=== PATIENT | male | born 2000 | race African-American/Black ===

== ENCOUNTER 2020-02-21 02:38 | Emergency (ER) | payer OTHER, SELFPAY ==
[2020-02-21 02:41] VITALS: BP 132/69; PULSE 78; RESP 16; TEMP 36.2; O2SAT 98; BMI 29.8
[2020-02-21 03:22] VITALS: BP 128/81; PULSE 86; RESP 18; O2SAT 97
--- NOTE | 2020-02-21 03:25 | ED.MALEGU ---
HPI - Male Genitourinary General Chief complaint: Urogenital-Male Stated complaint: DYSURIA Time Seen by Provider: 02/21/20 03:25 History of Present Illness HPI Narrative: This is a 19-year-old male who presents with pain and burning when he urinates and states that he has been engaging in unprotected sexual intercourse. Otherwise, he denies any fevers, chills, nausea, vomiting, diarrhea, scrotal pain. Related Data Allergies Allergy/AdvReac Type Severity Reaction Status Date / Time blueberry [BLUEBERRY] Allergy Unknown RASH Verified 02/21/20 02:41 blueberries Allergy Unknown Vomiting Uncoded 02/21/20 02:41 Review of Systems Review of Systems: Pertinent positives and negatives as stated in HPI 10 point review of systems is otherwise negative. [facility] Past Medical History Source: nursing notes reviewed Medical History No known health problems Social History Social History Alcohol intake: never Smoking Status: Current every day smoker Smoked in Last 30 Days: Yes Use of substances other than those prescribed or required for medical reasons: No Advance Directives: No Physical Exam Vital Signs and I&O and Narrative: Vital Signs and I&O: Vital Signs Temp 97.1 F 02/21/20 02:41 Pulse 86 02/21/20 03:22 Resp 18 02/21/20 03:22 BP 128/81 02/21/20 03:22 Pulse Ox 97 02/21/20 03:22 Intake & Output 02/20/20 02/20/20 02/21/20 06:59 18:59 06:59 Weight 99.79 kg Body Mass Index 29.8 VITAL SIGNS: Reviewed. GENERAL: Well developed, well nourished, in no acute distress. HEAD: Normocephalic/atraumatic, Posterior oropharynx was without edema, erythema or exudate. EYES: PERRLA, Pupils <>, EOMI intact without pain, no nystagmus/pallor/icterus noted EARS: Ext canals without abnormality, TMs non-bulging and non-erythematous NOSE: Nares patent bilateral OROPHARYNX: no oral lesions noted, posterior pharynx clear and non-erythematous without noted tonsillar enlargement/erythema/exudates NECK: Supple, no adenopathy LUNGS: Normal breath sounds. No adventitious sounds or accessory muscle use. SpO2<97> CARDIOVASCULAR: Regular rate and rhythm without noted murmurs, no JVD or lower extremity edema. ABDOMEN: Soft, non-tender, non-distended with bowel sounds. No rigidity. No guarding. No palpable masses or hernias noted MUSCULOSKELETAL: No tenderness, deformities, or effusions noted on gross inspection. EXTREMITIES: No cyanosis, clubbing or edema. SKIN: Inspection of the skin reveals no rashes, ulcerations, jaundice, pallor, or petechiae. NEUROLOGIC: Alert and oriented x 3. Strength and sensation to light touch were grossly intact x 4. Course Course Hospital Course: This is a 19-year-old male with history and clinical presentation consistent with most likely STI. Patient received empirical treatment and specimens were sent to the lab for verification. This was discussed with the patient at bedside and he knows that he will need to inform his sexual partners if he has called and found to be positive. Discharge Plan Discharge Clinical Impression: Urethritis Patient Disposition: Home, Self-Care Instructions: Nonspecific Urethritis in Men (ED) Additional Instructions: 1. You have been treated for your symptoms here in the emergency department. 2. You should abstain from sexual intercourse until the results of your tests have been called to you. 3. If you recalled and informed that you have a sexually transmitted infection you are required to inform your sexual partners. The patient and/or family acknowledge understanding of results (as applicable), diagnosis, treatment plan, need for follow up, and symptoms that should prompt a return to the emergency room. Referrals: Jyoti Uribe MD [Physician] - 2 days ( Follow-up urine tests)
[2020-02-21] MEDS: Azithromycin 500 MG TABLET 1000 MG PO (04:16)
[2020-02-21] MEDS: cefTRIAXone sodium 250 MG VIAL IM (04:16)
== END 2020-02-21 05:00 | disposition home or self-care (01) ==
PROVIDERS: Emergency Provider Student in an Organized Health Care Education/Training Program
DX: N34.2 Other urethritis (principal); R30.0 Dysuria; F17.200 Nicotine dependence, unspecified, uncomplicated; Z71.6 Tobacco abuse counseling
CPT/HCPCS: 96372; 99284; J0696

== ENCOUNTER 2020-04-17 06:23 | Outpatient (REF) | payer OTHER, SELFPAY | END 2020-04-17 06:24 | disposition home or self-care (01) | LOC: HO.LAB 06:23 | PROVIDERS: Visit Provider Internal Medicine | DX: Z20.828 Contact with and (suspected) exposure to other viral communicable diseases (principal) | CPT/HCPCS: C9803; U0003 ==

== ENCOUNTER 2020-07-22 00:19 | Emergency (ER) | payer OTHER, SELFPAY ==
--- NOTE | ~2020-07-22 | CT_ITS ---
EXAMINATION: CT HEAD WITHOUT CONTRAST CLINICAL INFORMATION: Syncope COMPARISON: None TECHNIQUE: Contiguous axial imaging was performed from the skull base to vertex without intravenous administration of contrast. This CT examination was performed using dose optimization techniques as appropriate, variously including the following: *Automated exposure control *Adjustment of mA and/or kV according to patient size (this includes techniques or standardized protocols for targeted exams where dose is matched to indication/reason for exam; i.e. extremities or head) *Use of iterative reconstruction technique DLP: 782 mGy-cm FINDINGS: There is no evidence of acute intracranial hemorrhage or territorial infarction. No abnormal mass effect or midline shift is seen. Meredith to white matter differentiation is well preserved. No extra-axial fluid collections are identified. The ventricles are normal in size. There is no abnormal attenuation within the brain parenchyma. The osseous structures and soft tissues are normal. The mastoid air cells and visualized portions of the paranasal sinuses are well aerated. CT/CT head/brain wo con IMPRESSION: No acute intracranial pathology.
--- NOTE | ~2020-07-22 | XR_ITS ---
EXAMINATION: XR CHEST CLINICAL INFORMATION: Syncope COMPARISON: 08/20/2017 TECHNIQUE: Frontal view of the chest was obtained. FINDINGS: Lung volumes are symmetric. No focal consolidation is seen. No evidence of pneumothorax, pleural effusion, or pulmonary edema. The cardiomediastinal contour is unremarkable. No acute osseous findings are seen. XR/XR chest 1V IMPRESSION: No acute cardiopulmonary findings.
[2020-07-22 00:27] VITALS: BP 110/78; PULSE 73; RESP 15; TEMP 36.7; O2SAT 97; BMI 28.5
--- NOTE | 2020-07-22 00:27 | ED_ITS ---
HPI - Syncope General Chief Complaint: Syncope <TANGELA Brown Last Filed: 07/22/20 01:47> Stated Complaint: syncope <TANGELA Brown Last Filed: 07/22/20 01:47> Time Seen by Provider: 07/22/20 01:46 <TANGELA Brown Last Filed: 07/22/20 01:47> Source: patient and EMS <TANGELA Brown Last Filed: 07/22/20 01:47> Mode of arrival: EMS <TANGELA Brown Last Filed: 07/22/20 01:47> Limitations: no limitations <TANGELA Brown Last Filed: 07/22/20 01:47> History of Present Illness HPI narrative: A 20-year-old male with history of suspected hypertrophic cardiomyopathy, had a workup by Cardiology yesterday and cannot recall the diagnosis that was given, presents via EMS for a syncopal episode. Patient does report smoking some marijuana several hours prior to the event. States that he got up to get some water, when he turned the lights on in the room that he was in he fell to the ground. He does not recall hitting his head. He felt weak, dizzy, and had left-sided arm pain prior to the event. He denies fevers, chills, chest pain and pressure, abdominal pain, abdominal distention, diaphoresis, dysuria, hematuria, and edema. <TANGELA Brown Last Filed: 07/22/20 01:47> MD complaint: loss of consciousness <TANGELA Brown Last Filed: 07/22/20 01:47> Onset (ago): hour(s) (Within the hour of arrival) <TANGELA Brown Last Filed: 07/22/20 01:47> Prodromal symptoms: lightheaded and other (Left arm pain) <TANGELA Brown Last Filed: 07/22/20 01:47> Context: getting out of bed <TANGELA Brown Last Filed: 07/22/20 01:47> Injuries sustained associated with event: none <TANGELA Brown Last Filed: 07/22/20 01:47> Current symptoms: weakness <TANGELA Brown Last Filed: 07/22/20 01:47> History: previous syncopal episode <TANGELA Brown Last Filed: 07/22/20 01:47> Related Data Allergies/Adverse Reactions: Allergies Allergy/AdvReac Type Severity Reaction Status Date / Time blueberry [BLUEBERRY] Allergy Unknown RASH Verified 02/21/20 02:41 blueberries Allergy Unknown Vomiting Uncoded 02/21/20 02:41 <TANGELA Brown Last Filed: 07/22/20 01:47> Review of Systems Review of Systems: Constitutional: Positive LOC syncopal episode, No Fever, No Chills ENT/Mouth: No Ear Pain, No Hoarseness, No sore throat Eyes: No Eye Pain, No Swelling, No Redness, No Foreign Body Cardiovascular: Positive left arm pain, No Chest Pain, No SOB Respiratory: No Cough, No Dyspnea Gastrointestinal: No Nausea, No Vomiting, No Diarrhea, No abdominal Pain Genitourinary: No Dysuria, No Hematuria Musculoskeletal: No joint pain, No Myalgias, No Joint Swelling Skin: No Skin lacerations, No rash Neuro: No Weakness, No Numbness, No Paresthesias, No Loss of Consciousness, No Dizziness, No Headache Psych: No Anxiety/Panic, No Depression Heme/Lymph: no easy bruising, no Lymphadenopathy Endocrine: No Polyuria, No Polydipsia <TANGELA Brown Last Filed: 07/22/20 01:47> Yes all other systems are reviewed and are negative <Rose Bo NP - Last Filed: 07/22/20 01:47> [facility] Past Medical History Attestation statement: The following information was validated with the patient. <TANGELA Brown Last Filed: 07/22/20 01:47> Source: old records reviewed <TANGELA Brown Last Filed: 07/22/20 01:47> Medical History: Medical History No known health problems <TANGELA Brown Last Filed: 07/22/20 01:47> Social History Social History: Social History Alcohol intake: current Alcohol intake frequency: holidays/special occasions only Smoking Status: Current every day smoker Smoked in Last 30 Days: No Use of substances other than those prescribed or required for medical reasons: Yes Substance Use Type: Marijuana Advance Directives: No Advance Directives Information Provided: No <Rose Bo NP - Last Filed: 07/22/20 01:47> Physical Exam Vital Signs: Vital Signs: Last Vital Signs Temp 98.1 F 07/22/20 02:00 Pulse 73 07/22/20 02:00 Resp 18 07/22/20 02:00 BP 126/51 L 07/22/20 02:00 Pulse Ox 97 07/22/20 02:00 Body Mass Index 28.5 <Rose Bo NP - Last Filed: 07/22/20 01:47> Vital Signs: Last Vital Signs Temp 98.1 F 07/22/20 02:00 Pulse 73 07/22/20 02:00 Resp 18 07/22/20 02:00 BP 126/51 L 07/22/20 02:00 Pulse Ox 97 07/22/20 02:00 Body Mass Index 28.5 <Esequiel Joseph MD - Last Filed: 07/22/20 03:07> Appearance: Alert. Oriented X3. Mild distress. Appears tired. Head: Normal external exam. Normocephalic. Atraumatic. No Butler signs noted. No raccoon eyes noted Eyes: PERRLA. EOMI. Conjunctiva and sclera normal. Eyelids normal. ENT: TM's Normal. Pharynx normal. Uvula midline. Moist mucous membranes. No trismus noted. No drooling noted. No muffled voice noted. Neck: Normal inspection. Neck supple. No adenopathy. No meningeal signs. CVS: Normal heart rate and rhythm. Heart sound normal. No murmurs noted. Pulses equal to all extremities. Respiratory: No respiratory distress. Painless inspiration. Breath sounds normal. No wheezes/rales/rhonchi noted. Chest nontender. No accessory muscle usage noted or decreased air movement noted. Abdomen: Soft and nontender. Bowel sounds normal in all 4 quadrants. No distention noted. No organomegaly noted. No visible injury noted. Back: No CVA tenderness. Full range of motion noted. Skin: Skin warm and dry. Normal skin color. Normal skin turgor. No ra shes/lesions/lacerations noted. Extremities: No lower extremity edema. Extremities exhibit normal range of motion. Extremities nontender. Neuro: cranial nerves 2-12 intact, no focal neural deficits, strength 5/5 to all extremities, No motor deficit. No sensory deficit. <TANGELA Brown Last Filed: 07/22/20 01:47> Course Course Course Narrative: 20-year-old male presents with syncopal episode. States that he was worked up by pediatric acute care unit nurse few days ago for enlarged heart muscles. He is unsure of what his diagnosis is, states that his brother also has a congenital heart defect. Patient does report smoking marijuana several hours prior to the event. Patient does complain of left arm pain but has no other complaints at this time. Given patient's demographic history and questionable cardiac history we will rule out dissection, ACS. his EKG indicates LVH and questionable ST elevation probably due to early repolarization plan is for CT scan of the head, CT neck and head angio, rule out ACS, CBC, Chem 7 and troponins. 12:50 a.m. discussion with his mother Mel, states that patient has a leaking left valve and left-sided enlargement of his heart. Sees Dr. Bailey for ms access database developer on [facility]. Mother also states that patient has had multiple syncopal episodes starting at age 13. Patient's brother 13 years old has a murmur and an irregular rhythm. Patient's cousin at age 30 sudden cardiac without any significant health history. A review of records indicates that patient has had history of cardiomyopathy, mitral insufficiency and ST elevations consistent with early repolarization and LVH dating back to 2014. 1:46 a.m. sign out to Dr. Joseph <Rose Bo NP - Last Filed: 07/22/20 01:47> MDM - Syncope MDM Narrative Medical decision making narrative: ACS, dissection <Rose Bo NP - Last Filed: 07/22/20 01:47> Differential Diagnosis Differential diagnosis: Likely syncope due to orthostatic hypotension, vasovagal syncope, complete atrioventricular block and dehydration <Rose Bo NP - Last Filed: 07/22/20 01:47> Medical Records Attestation: I reviewed the patient's medical records. <Rose Bo NP - Last Filed: 07/22/20 01:47> Lab Data Attestation: I reviewed the patient's lab results. <Rose Bo NP - Last Filed: 07/22/20 01:47> Result diagrams: : 07/22/20 01:24 07/22/20 01:24 <Rose Bo NP - Last Filed: 07/22/20 01:47> Labs: Lab Results 07/22/20 07/22/20 07/22/20 Range/Units 01:00 01:24 01:24 WBC 6.9 (4.8-10.8) X10*3/uL RBC 4.94 (4.60-5.80) X10*6/uL Hgb 14.4 (14.0-18.0) g/dl Hct 43.7 (42-52) % MCV 88.5 (80-98) fL MCH 29.1 (27.0-33.0) pg MCHC 33.0 (31.0-36.0) g/dl RDW 13.9 (11.0-16.0) % Plt Count 171 (160-400) X10*3/uL MPV 10.4 (9.4-12.4) fL Immature Gran % (Auto) 0.1 (0.0-0.4) % Neut % (Auto) 63.9 (45-73) % Lymph % (Auto) 22.8 (20-40) % [place] % (Auto) 11.9 H (2-11) % Eos % (Auto) 1.0 (0-4) % Baso % (Auto) 0.3 (0-2) % Lymph # (Auto) 1.6 (1.2-4.9) X10*3/uL [place] # (Auto) 0.8 (0.1-1.2) X10*3/uL Eos # (Auto) 0.1 (0.0-0.4) X10*3/uL Baso # (Auto) 0.0 (0.0-0.2) X10*3/uL Abs Immat Gran (auto) 0.01 (0.00-0.03) X10*3/uL Absolute Neuts (auto) 4.4 (2.0-8.3) X10*3/uL Absolute Nucleated RBC 0.000 (0.0-0.012) X10*3/uL Nucleated RBC % (auto) 0.0 (0.0-0.2) /100WBC PT 13.7 H (10.8-13.0) SEC INR 1.2 H (0.9-1.1) APTT 30.4 (24.1-38.0) SEC Sodium (135-145) mmol/L Potassium (3.3-5.1) mmol/L Chloride (96-108) mmol/L Carbon Dioxide (22-29) mmol/L Anion Gap (12-20) BUN (9-16) mg/dL Creatinine (0.5-1.4) mg/dL Estim Creat Clear Calc Estimated GFR POC Glucose 157 H (60-115) mg/dL Random Glucose (60-115) mg/dL Calcium (8.4-10.2) mg/dL Magnesium (1.6-2.6) mg/dL Total Bilirubin (0.0-1.0) mg/dL Direct Bilirubin (0.0-0.5) mg/dL AST (5-37) U/L ALT (0-40) U/L Alkaline Phosphatase (39-117) U/L Troponin I High Sens (<3.5-35.0) ng/L Total Protein (6.5-8.0) g/dL Albumin (3.5-5.0) g/dL Lipase (8-78) U/L Ethyl Alcohol mg/dL 07/22/20 07/22/20 07/22/20 Range/Units 01:24 01:24 01:24 WBC (4.8-10.8) X10*3/uL RBC (4.60-5.80) X10*6/uL Hgb (14.0-18.0) g/dl Hct (42-52) % MCV (80-98) fL MCH (27.0-33.0) pg MCHC (31.0-36.0) g/dl RDW (11.0-16.0) % Plt Count (160-400) X10*3/uL MPV (9.4-12.4) fL Immature Gran % (Auto) (0.0-0.4) % Neut % (Auto) (45-73) % Lymph % (Auto) (20-40) % [place] % (Auto) (2-11) % Eos % (Auto) (0-4) % Baso % (Auto) (0-2) % Lymph # (Auto) (1.2-4.9) X10*3/uL [place] # (Auto) (0.1-1.2) X10*3/uL Eos # (Auto) (0.0-0.4) X10*3/uL Baso # (Auto) (0.0-0.2) X10*3/uL Abs Immat Gran (auto) (0.00-0.03) X10*3/uL Absolute Neuts (auto) (2.0-8.3) X10*3/uL Absolute Nucleated RBC (0.0-0.012) X10*3/uL Nucleated RBC % (auto) (0.0-0.2) /100WBC PT (10.8-13.0) SEC INR (0.9-1.1) APTT (24.1-38.0) SEC Sodium 138 (135-145) mmol/L Potassium 5.1 (3.3-5.1) mmol/L Chloride 104 (96-108) mmol/L Carbon Dioxide 21 L (22-29) mmol/L Anion Gap 18 (12-20) BUN 10 (9-16) mg/dL Creatinine 0.92 (0.5-1.4) mg/dL Estim Creat Clear Calc 144.7 Estimated GFR > 60 POC Glucose (60-115) mg/dL Random Glucose 138 H (60-115) mg/dL Calcium 8.6 (8.4-10.2) mg/dL Magnesium 2.0 (1.6-2.6) mg/dL Total Bilirubin 0.2 (0.0-1.0) mg/dL Direct Bilirubin < 0.2 (0.0-0.5) mg/dL AST 37 (5-37) U/L ALT 35 (0-40) U/L Alkaline Phosphatase 66 (39-117) U/L Troponin I High Sens < 3.5 (<3.5-35.0) ng/L Total Protein 7.5 (6.5-8.0) g/dL Albumin 4.1 (3.5-5.0) g/dL Lipase 11 (8-78) U/L Ethyl Alcohol < 10 mg/dL <Rose Bo NP - Last Filed: 07/22/20 01:47> Lab Results 07/22/20 07/22/20 07/22/20 Range/Units 01:00 01:24 01:24 WBC 6.9 (4.8-10.8) X10*3/uL RBC 4.94 (4.60-5.80) X10*6/uL Hgb 14.4 (14.0-18.0) g/dl Hct 43.7 (42-52) % MCV 88.5 (80-98) fL MCH 29.1 (27.0-33.0) pg MCHC 33.0 (31.0-36.0) g/dl RDW 13.9 (11.0-16.0) % Plt Count 171 (160-400) X10*3/uL MPV 10.4 (9.4-12.4) fL Immature Gran % (Auto) 0.1 (0.0-0.4) % Neut % (Auto) 63.9 (45-73) % Lymph % (Auto) 22.8 (20-40) % [place] % (Auto) 11.9 H (2-11) % Eos % (Auto) 1.0 (0-4) % Baso % (Auto) 0.3 (0-2) % Lymph # (Auto) 1.6 (1.2-4.9) X10*3/uL [place] # (Auto) 0.8 (0.1-1.2) X10*3/uL Eos # (Auto) 0.1 (0.0-0.4) X10*3/uL Baso # (Auto) 0.0 (0.0-0.2) X10*3/uL Abs Immat Gran (auto) 0.01 (0.00-0.03) X10*3/uL Absolute Neuts (auto) 4.4 (2.0-8.3) X10*3/uL Absolute Nucleated RBC 0.000 (0.0-0.012) X10*3/uL Nucleated RBC % (auto) 0.0 (0.0-0.2) /100WBC PT 13.7 H (10.8-13.0) SEC INR 1.2 H (0.9-1.1) APTT 30.4 (24.1-38.0) SEC Sodium (135-145) mmol/L Potassium (3.3-5.1) mmol/L Chloride (96-108) mmol/L Carbon Dioxide (22-29) mmol/L Anion Gap (12-20) BUN (9-16) mg/dL Creatinine (0.5-1.4) mg/dL Estim Creat Clear Calc Estimated GFR POC Glucose 157 H (60-115) mg/dL Random Glucose (60-115) mg/dL Calcium (8.4-10.2) mg/dL Magnesium (1.6-2.6) mg/dL Total Bilirubin (0.0-1.0) mg/dL Direct Bilirubin (0.0-0.5) mg/dL AST (5-37) U/L ALT (0-40) U/L Alkaline Phosphatase (39-117) U/L Troponin I High Sens (<3.5-35.0) ng/L Total Protein (6.5-8.0) g/dL Albumin (3.5-5.0) g/dL Lipase (8-78) U/L Ethyl Alcohol mg/dL 07/22/20 07/22/20 07/22/20 Range/Units 01:24 01:24 01:24 WBC (4.8-10.8) X10*3/uL RBC (4.60-5.80) X10*6/uL Hgb (14.0-18.0) g/dl Hct (42-52) % MCV (80-98) fL MCH (27.0-33.0) pg MCHC (31.0-36.0) g/dl RDW (11.0-16.0) % Plt Count (160-400) X10*3/uL MPV (9.4-12.4) fL Immature Gran % (Auto) (0.0-0.4) % Neut % (Auto) (45-73) % Lymph % (Auto) (20-40) % [place] % (Auto) (2-11) % Eos % (Auto) (0-4) % Baso % (Auto) (0-2) % Lymph # (Auto) (1.2-4.9) X10*3/uL [place] # (Auto) (0.1-1.2) X10*3/uL Eos # (Auto) (0.0-0.4) X10*3/uL Baso # (Auto) (0.0-0.2) X10*3/uL Abs Immat Gran (auto) (0.00-0.03) X10*3/uL Absolute Neuts (auto) (2.0-8.3) X10*3/uL Absolute Nucleated RBC (0.0-0.012) X10*3/uL Nucleated RBC % (auto) (0.0-0.2) /100WBC PT (10.8-13.0) SEC INR (0.9-1.1) APTT (24.1-38.0) SEC Sodium 138 (135-145) mmol/L Potassium 5.1 (3.3-5.1) mmol/L Chloride 104 (96-108) mmol/L Carbon Dioxide 21 L (22-29) mmol/L Anion Gap 18 (12-20) BUN 10 (9-16) mg/dL Creatinine 0.92 (0.5-1.4) mg/dL Estim Creat Clear Calc 144.7 Estimated GFR > 60 POC Glucose (60-115) mg/dL Random Glucose 138 H (60-115) mg/dL Calcium 8.6 (8.4-10.2) mg/dL Magnesium 2.0 (1.6-2.6) mg/dL Total Bilirubin 0.2 (0.0-1.0) mg/dL Direct Bilirubin < 0.2 (0.0-0.5) mg/dL AST 37 (5-37) U/L ALT 35 (0-40) U/L Alkaline Phosphatase 66 (39-117) U/L Troponin I High Sens < 3.5 (<3.5-35.0) ng/L Total Protein 7.5 (6.5-8.0) g/dL Albumin 4.1 (3.5-5.0) g/dL Lipase 11 (8-78) U/L Ethyl Alcohol < 10 mg/dL <Esequiel Joseph MD - Last Filed: 07/22/20 03:07> ECG Data Attestation: I personally reviewed and interpreted this ECG as follows: <Rose Bo NP - Last Filed: 07/22/20 01:47> ECG interpretation date: 07/22/20 <Rose Bo NP - Last Filed: 07/22/20 01:47> ECG interpretation time: 00:41 <Rose Bo NP - Last Filed: 07/22/20 01:47> Prior ECG tracings: available for review <Rose Bo NP - Last Filed: 07/22/20 01:47> Interpretation: Vent. rate 64 BPM CO interval 146 ms QRS duration 98 ms QT/QTc 388/400 ms P-R-T axes 47 76 40 Normal sinus rhythm Minimal voltage criteria for LVH, may be normal variant ST elevation, consider early repolarization Borderline ECG When compared with ECG of 21-AUG-2017 04:01, No significant change was found <Rose Bo NP - Last Filed: 07/22/20 01:47>
--- NOTE | 2020-07-22 00:31 | ECG_ITS ---
Test Reason : SYNCOPEE Blood Pressure : / mmHG Vent. Rate : 064 BPM Atrial Rate : 064 BPM P-R Int : 146 ms QRS Dur : 098 ms QT Int : 388 ms P-R-T Axes : 047 076 040 degrees QTc Int : 400 ms Normal sinus rhythm Minimal voltage criteria for LVH, may be normal variant ST elevation, consider early repolarization Borderline ECG When compared with ECG of 21-AUG-2017 04:01, No significant change was found Referred By: Rose Bo Electronically Signed By:KEVON PATE
[2020-07-22 01:29] LABS: MANUAL DIFF FLAG NO
[2020-07-22 01:30] LABS: Basophils Percent Auto 0.3 % (0-2); Eosinophils Absolute Auto 0.1 X10*3/uL (0.0-0.4); Hematocrit 43.7 % (42-52); Hemoglobin 14.4 g/dl (14.0-18.0); Imm Gran Abs Auto 0.01 X10*3/uL (0.00-0.03); Imm Gran Pct Auto 0.1 % (0.0-0.4); Lymphocytes Absolute Auto 1.6 X10*3/uL (1.2-4.9); Lymphocytes Percent Auto 22.8 % (20-40); Mean Corpuscular Hemoglobin 29.1 pg (27.0-33.0); Mean Corpuscular Volume 88.5 fL (80-98); Mean Platelet Volume 10.4 fL (9.4-12.4); Monocytes Absolute Auto 0.8 X10*3/uL (0.1-1.2); Monocytes Percent Auto 11.9 % (2-11); Neutrophils Absolute Auto 4.4 X10*3/uL (2.0-8.3); Neutrophils Percent Auto 63.9 % (45-73); Platelet Count 171 X10*3/uL (160-400); Red Blood Count 4.94 X10*6/uL (4.60-5.80); Red Cell Distribution Width 13.9 % (11.0-16.0); White Blood Count 6.9 X10*3/uL (4.8-10.8)
[2020-07-22 01:34] LABS: Glucose, Whole Blood 157 mg/dL (60-115)
[2020-07-22 01:35] LABS: INTERNATIONAL NORM RATIO 1.2 (0.9-1.1); Prothrombin Time 13.7 SEC (10.8-13.0)
[2020-07-22 01:38] LABS: Partial Thromboplastin Time 30.4 SEC (24.1-38.0)
[2020-07-22 01:41] VITALS: BP 110/53; PULSE 82; RESP 19; O2SAT 98
[2020-07-22 01:59] LABS: Troponin-I High Sensitivity < 3.5 ng/L (<3.5-35.0)
[2020-07-22 02:00] VITALS: BP 126/51; PULSE 73; PULSE 80; RESP 16; RESP 18; TEMP 36.7; O2SAT 97; O2SAT 98
[2020-07-22 02:11] LABS: Ethanol < 10 mg/dL
[2020-07-22 02:18] LABS: Alanine Aminotransferase 35 U/L (0-40); Albumin Level 4.1 g/dL (3.5-5.0); Alkaline Phosphatase 66 U/L (39-117); Anion Gap 18 (12-20); Aspartate Amino Transferase 37 U/L (5-37); Bilirubin Direct < 0.2 mg/dL (0.0-0.5); Bilirubin Total 0.2 mg/dL (0.0-1.0); Blood Urea Nitrogen 10 mg/dL (9-16); Calcium 8.6 mg/dL (8.4-10.2); Carbon Dioxide 21 mmol/L (22-29); Chloride 104 mmol/L (96-108); Creatinine Clr Calc Pharmacy 144.7; Estimated Glomerular Filt Rate > 60; Glucose Random 138 mg/dL (60-115); Lipase 11 U/L (8-78); Potassium 5.1 mmol/L (3.3-5.1); Sodium 138 mmol/L (135-145); Total Protein 7.5 g/dL (6.5-8.0)
== END 2020-07-22 03:50 | disposition home or self-care (01) ==
PROVIDERS: Nurse Practitioner Family; Emergency Provider Emergency Medicine Emergency Medical Services
DX: R55 Syncope and collapse (principal); I42.9 Cardiomyopathy, unspecified; I34.0 Nonrheumatic mitral (valve) insufficiency; F12.90 Cannabis use, unspecified, uncomplicated; F17.200 Nicotine dependence, unspecified, uncomplicated
CPT/HCPCS: 36415; 70450; 71045; 80048; 80076; 80320; 82947; 83690; 83735; 84484; 85025; 85610; 85730; 93005; 99285

== ENCOUNTER 2022-01-13 13:38 | Emergency (ER) | payer OTHER, SELFPAY ==
--- NOTE | ~2022-01-13 | XR_ITS ---
EXAMINATION: XR CHEST CLINICAL INFORMATION: Chest pain COMPARISON: Chest x-ray 07/22/2020 TECHNIQUE: 2 views of the chest were obtained. FINDINGS: The lungs are clear. No airspace consolidation, pleural effusion, or pneumothorax. The cardiomediastinal silhouette is within normal limits. No acute osseous injury. XR/XR chest 2V IMPRESSION: No acute pulmonary process.
--- NOTE | 2022-01-13 13:42 | ECG_ITS ---
Test Reason : CP Blood Pressure : / mmHG Vent. Rate : 074 BPM Atrial Rate : 074 BPM P-R Int : 138 ms QRS Dur : 092 ms QT Int : 382 ms P-R-T Axes : 058 079 044 degrees QTc Int : 424 ms Normal sinus rhythm ST elevation, consider early repolarization Borderline ECG When compared with ECG of 22-JUL-2020 00:41, No significant change was found Referred By: Generic ED Physician Electronically Signed By:JOSE CARLOS MCLAUGHLIN
[2022-01-13 13:47] VITALS: BP 132/66; PULSE 74; RESP 16; TEMP 36.6; O2SAT 98; BMI 28.7
--- NOTE | 2022-01-13 14:13 | ED_ITS ---
HPI - Chest Pain General Chief Complaint: Chest Pain Stated Complaint: Chest pain Time Seen by Provider: 01/13/22 13:51 Source: patient Mode of arrival: ambulatory Limitations: no limitations History of Present Illness HPI narrative: This is a 21-year-old male with an unknown cardiac condition who presents with chest pain which he describes as left-sided, sharp and stabbing since 01/15 this morning. Patient tells me he works for [employer] which is a quite physical job. He was operating a [employer] when he started to experience pain in the chest. This was associated with some shortness of breath. The pain has been constant. Patient denies any associated nausea, diaphoresis, cough, fever, leg swelling or leg pain, dizziness or palpitations. Patient tells me he was diagnosed with this condition at the age of 15. He is followed by Dr. Dunn at the [facility] in [place]. He sees him yearly for echocardiograms. He tells me he has no physical restrictions. His brother has a similar heart condition Of note, the patient was diagnosed with COVID on January 02. Patient reports symptoms for about 7 days of nausea, vomiting, diarrhea, fatigue, fever, body aches and chills. His symptoms have since resolved. He is unvaccinated for COVID. No recent travel or sick contact. Patient denies any substance use Related Data Allergies Allergy/AdvReac Type Severity Reaction Status Date / Time blueberry [BLUEBERRY] Allergy Unknown RASH Verified 02/21/20 02:41 blueberries Allergy Unknown Vomiting Uncoded 02/21/20 02:41 Review of Systems Review of Systems: Yes all other systems are reviewed and are negative Constitutional: Constitutional: Reports no additional constitutional complaints, Denies body ache(s), Denies chills, Denies fever(s), Denies headache(s) and Denies weakness Eyes: Eyes: Reports no additional eye complaints and Denies change in vision ENT: Reports system reviewed and no additional complaints, except as documented, Denies dizziness, Denies headache(s), Denies nasal congestion, Denies nasal discharge and Denies neck pain Cardiovascular: Cardiovascular: Reports no additional cardiovascular complaints, Reports chest pain, Denies leg edema and Reports dyspnea Respiratory: Respiratory: Reports no additional respiratory complaints, Denies cough and Reports dyspnea Gastrointestinal: Gastrointestinal: Reports no additional gastrointestinal complaints, Denies abdominal pain, Denies diarrhea, Denies nausea and Denies vomiting Genitourinary: Genitourinary: Denies urinary incontinence Musculoskeletal: Musculoskeletal: Reports no additional musculoskeletal complaints, Denies back pain, Denies arthralgias, Denies joint swelling, Denies neck pain, Denies numbness and Denies tingling Integumentary/Breasts: Skin/Breast: Reports system reviewed and no additional complaints, except as docu and Denies rash Neurologic: Reports system reviewed and no additional complaints, except as documented, Denies Abnormal speech present, Denies dizziness, Denies headache(s), Denies numbness, Denies tingling and Denies weakness PMFSH Past Medical History Attestation statement: The following information was validated with the patient. Source: old records reviewed and nursing notes reviewed Medical History No known health problems Social History Social History Alcohol intake: current Alcohol intake frequency: holidays/special occasions only Substance Use Type: Marijuana Advance Directives: No Advance Directives Information Provided: No Physical Exam Vital Signs: Vital Signs: Last Vital Signs Temp 98.1 F 01/13/22 15:20 Pulse 71 01/13/22 15:20 Resp 16 01/13/22 15:20 BP 127/79 01/13/22 15:20 Pulse Ox 98 01/13/22 15:20 O2 Del Method 01/13/22 15:20 BMI result Body Mass Index 28.7 Const: General: cooperative, healthy appearing, comfortable and no acute distress Orientation/consciousness: patient oriented x3 Limitations: no limitations HEENT: Head: Yes normal to inspection Ears: hearing grossly normal bilaterally General nose exam: Normal external nose present Face and sinus: Yes normal facial exam Mouth: Normal oral and palatal mucosa present Throat: Yes posterior oropharynx normal Eyes: General: appearance normal, both eyes and all related structures Pupils: Equal, round and reactive pupils present Neck: Neck: Yes normal visual inspection Chest: Chest palpation & inspection: normal inspection of the chest Resp: Effort & Inspection: normal respiratory effort Auscultation: clear to auscultation bilaterally Cardio: Rate: regular rate Rhythm: regular rhythm Peripheral pulses: Peripheral pulses 2+ throughout GI: Inspection: Yes normal to inspection Palpation (GI): Soft to palpation and nontender Auscultation: normal bowel sounds Back/Spine/Pelvis: Thoracic/Lumbar Spine: thoracic and lumbar spine normal to inspection Skin: General skin exam: no rashes or lesions noted Neuro: General: patient oriented x3, no focal motor deficits and normal sensation to monofilament Cranial nerves: Yes Equal, round and reactive pupils present Cognition (Neuro): normal cognition Speech: No Abnormal speech present Gait exam (Neuro): Normal gait present Motor exam (neuro): 5/5 motor strength present throughout Extrem: General: Yes normal to inspection, Yes no pedal edema and Yes no calf tenderness Course Course Course Narrative: Troponin times to unchanged. EKG shows no new changes. Less likely ACS. Considered PE. Perc score 0. Recommend patient follow-up with his steel rule inspector. Reviewed worrisome signs and symptoms of when to return to the emergency department. Comfortable discharge home. MDM - Chest Pain MDM Narrative Medical decision making narrative: 21-year-old male with a known cardiac condition presents with chest pain with shortness of breath since 0830 this morning. Vitals are stable. Will obtain EKG, labs and chest x-ray Differential Diagnosis Differential diagnosis: Myocarditis, acs, pe Medical Records Data Attestation: I reviewed the patient's medical records. Lab Data Attestation: I reviewed the patient's lab results. Result diagrams: 01/13/22 14:17 01/13/22 14:17 Labs: Lab Results 01/13/22 01/13/22 01/13/22 Range/Units 14:17 14:17 14:17 WBC 6.0 (4.8-10.8) X10*3/uL RBC 4.96 (4.60-5.80) X10*6/uL Hgb 14.4 (14.0-18.0) g/dl Hct 41.4 L (42.0-52.0) % MCV 83.5 (80.0-98.0) fL MCH 29.0 (27.0-33.0) pg MCHC 34.8 (31.0-36.0) g/dl RDW 13.3 (11.0-16.0) % Plt Count 206 (160-400) X10*3/uL MPV 10.1 (9.4-12.4) fL Immature Gran % (Auto) 0.2 (0.0-0.4) % Neut % (Auto) 49.9 (45-73) % Lymph % (Auto) 40.7 H (20-40) % Douglas % (Auto) 8.6 (2-11) % Eos % (Auto) 0.3 (0-4) % Baso % (Auto) 0.3 (0-2) % Lymph # (Auto) 2.5 (1.2-4.9) X10*3/uL Douglas # (Auto) 0.5 (0.1-1.2) X10*3/uL Eos # (Auto) 0.0 (0.0-0.4) X10*3/uL Baso # (Auto) 0.0 (0.0-0.2) X10*3/uL Abs Immat Gran (auto) 0.01 (0.00-0.03) X10*3/uL Absolute Neuts (auto) 3.0 (2.0-8.3) x10*3/uL Absolute Nucleated RBC 0.000 (0.0-0.012) X10*3/uL Nucleated RBC % (auto) 0.0 (0.0-0.2) /100WBC PT 15.2 H (10.0-13.1) SEC INR 1.3 H (0.9-1.1) Sodium 143 (135-145) mmol/L Potassium 3.8 D (3.3-5.1) mmol/L Chloride 108 (96-108) mmol/L Carbon Dioxide 23 (22-29) mmol/L Anion Gap 16 (12-20) BUN 12 (9-16) mg/dL Creatinine 0.85 (0.5-1.4) mg/dL Estim Creat Clear Calc 155.7 Estimated GFR > 60 Random Glucose 81 D (60-115) mg/dL Calcium 9.2 D (8.4-10.2) mg/dL Total Bilirubin 0.6 (0.0-1.0) mg/dL Direct Bilirubin 0.3 (0.0-0.5) mg/dL AST 31 (5-37) U/L ALT 40 (0-40) U/L Alkaline Phosphatase 68 (39-117) U/L Troponin I High Sens (<3.5-35.0) ng/L Total Protein 7.8 (6.5-8.0) g/dL Albumin 4.6 (3.5-5.0) g/dL 01/13/22 01/13/22 Range/Units 14:17 16:48 WBC (4.8-10.8) X10*3/uL RBC (4.60-5.80) X10*6/uL Hgb (14.0-18.0) g/dl Hct (42.0-52.0) % MCV (80.0-98.0) fL MCH (27.0-33.0) pg MCHC (31.0-36.0) g/dl RDW (11.0-16.0) % Plt Count (160-400) X10*3/uL MPV (9.4-12.4) fL Immature Gran % (Auto) (0.0-0.4) % Neut % (Auto) (45-73) % Lymph % (Auto) (20-40) % Douglas % (Auto) (2-11) % Eos % (Auto) (0-4) % Baso % (Auto) (0-2) % Lymph # (Auto) (1.2-4.9) X10*3/uL Douglas # (Auto) (0.1-1.2) X10*3/uL Eos # (Auto) (0.0-0.4) X10*3/uL Baso # (Auto) (0.0-0.2) X10*3/uL Abs Immat Gran (auto) (0.00-0.03) X10*3/uL Absolute Neuts (auto) (2.0-8.3) x10*3/uL Absolute Nucleated RBC (0.0-0.012) X10*3/uL Nucleated RBC % (auto) (0.0-0.2) /100WBC PT (10.0-13.1) SEC INR (0.9-1.1) Sodium (135-145) mmol/L Potassium (3.3-5.1) mmol/L Chloride (96-108) mmol/L Carbon Dioxide (22-29) mmol/L Anion Gap (12-20) BUN (9-16) mg/dL Creatinine (0.5-1.4) mg/dL Estim Creat Clear Calc Estimated GFR Random Glucose (60-115) mg/dL Calcium (8.4-10.2) mg/dL Total Bilirubin (0.0-1.0) mg/dL Direct Bilirubin (0.0-0.5) mg/dL AST (5-37) U/L ALT (0-40) U/L Alkaline Phosphatase (39-117) U/L Troponin I High Sens 3.8 4.0 (<3.5-35.0) ng/L Total Protein (6.5-8.0) g/dL Albumin (3.5-5.0) g/dL Imaging Data Chest x-ray: Attestation: I personally reviewed and interpreted this imaging study as follows: Radiologist's impression: ORMATION: Chest pain COMPARISON: Chest x-ray 07/22/2020 TECHNIQUE: 2 views of the chest were obtained. FINDINGS: The lungs are clear. No airspace consolidation, pleural effusion, or pneumothorax. The cardiomediastinal silhouette is within normal limits. No acute osseous injury. XR/XR chest 2V IMPRESSION: No acute pulmonary process. ECG Data ECG #1: Attestation: I personally reviewed and interpreted this ECG as follows: ECG interpretation date: 01/13/22 ECG interpretation time: 13:44 Interpretation: Sinus rhythm with a rate of 74, early repolarization noted, normal QRS and QT Unchanged when compared to previous EKG of August from 2021 Discharge Plan Discharge Clinical Impression: Chest pain Patient Disposition: Still a Patient Instructions: Chest Pain (DC) Additional Instructions: Your blood work, EKG and chest x-ray are all very reassuring today. We recommend that you follow-up with your steel rule inspector outpatient. Referrals: Doug Dunn MD [Physician] - 2 weeks Stand Alone Forms: Work/School Release
[2022-01-13 14:22] LABS: MANUAL DIFF FLAG NO
[2022-01-13 14:27] LABS: Basophils Percent Auto 0.3 % (0-2); Eosinophils Percent Auto 0.3 % (0-4); Hematocrit 41.4 % (42.0-52.0); Hemoglobin 14.4 g/dl (14.0-18.0); Imm Gran Abs Auto 0.01 X10*3/uL (0.00-0.03); Imm Gran Pct Auto 0.2 % (0.0-0.4); Lymphocytes Absolute Auto 2.5 X10*3/uL (1.2-4.9); Lymphocytes Percent Auto 40.7 % (20-40); Mean Corpuscular HGB Conc 34.8 g/dl (31.0-36.0); Mean Corpuscular Volume 83.5 fL (80.0-98.0); Mean Platelet Volume 10.1 fL (9.4-12.4); Monocytes Absolute Auto 0.5 X10*3/uL (0.1-1.2); Monocytes Percent Auto 8.6 % (2-11); Neutrophils Percent Auto 49.9 % (45-73); Platelet Count 206 X10*3/uL (160-400); Red Blood Count 4.96 X10*6/uL (4.60-5.80); Red Cell Distribution Width 13.3 % (11.0-16.0)
[2022-01-13 14:28] LABS: INTERNATIONAL NORM RATIO 1.3 (0.9-1.1); Prothrombin Time 15.2 SEC (10.0-13.1)
[2022-01-13 14:42] LABS: Troponin-I High Sensitivity 3.8 ng/L (<3.5-35.0)
[2022-01-13 14:43] LABS: Alanine Aminotransferase 40 U/L (0-40); Albumin Level 4.6 g/dL (3.5-5.0); Alkaline Phosphatase 68 U/L (39-117); Anion Gap 16 (12-20); Aspartate Amino Transferase 31 U/L (5-37); Bilirubin Direct 0.3 mg/dL (0.0-0.5); Bilirubin Total 0.6 mg/dL (0.0-1.0); Blood Urea Nitrogen 12 mg/dL (9-16); Calcium 9.2 mg/dL (8.4-10.2); Carbon Dioxide 23 mmol/L (22-29); Chloride 108 mmol/L (96-108); Creatinine Clr Calc Pharmacy 155.7; Estimated Glomerular Filt Rate > 60; Glucose Random 81 mg/dL (60-115); Potassium 3.8 mmol/L (3.3-5.1); Sodium 143 mmol/L (135-145); Total Protein 7.8 g/dL (6.5-8.0)
[2022-01-13 15:20] VITALS: BP 127/79; PULSE 71; RESP 16; TEMP 36.7; O2SAT 98
== END 2022-01-13 17:57 | disposition still patient (30) ==
PROVIDERS: Nurse Practitioner Family; Emergency Provider Emergency Medicine; PCP Pediatrics
DX: R07.89 Other chest pain (principal); Z79.899 Other long term (current) drug therapy
CPT/HCPCS: 36415; 71046; 80048; 80076; 84484; 85025; 85610; 93005; 99283

== ENCOUNTER 2022-06-07 09:35 | Emergency (ER) | payer OTHER, SELFPAY ==
--- NOTE | ~2022-06-07 | CT_ITS ---
EXAMINATION: CT ABDOMEN AND PELVIS WITH CONTRAST CLINICAL INFORMATION: Left-sided abdominal pain, vomiting COMPARISON: None TECHNIQUE: Multidetector volumetric images were obtained from the superior aspect of the liver through the pubic symphysis following administration 85 mL of Omnipaque 350 intravenous contrast. Sagittal and coronal reformatted images were obtained on the technologist's workstation. Oral contrast: No This CT examination was performed using dose optimization techniques as appropriate, variously including the following: *Automated exposure control *Adjustment of mA and/or kV according to patient size (this includes techniques or standardized protocols for targeted exams where dose is matched to indication/reason for exam; i.e. extremities or head) *Use of iterative reconstruction technique DLP: 546 mGy-cm FINDINGS: LUNG BASES: The visualized lung bases are unremarkable. LIVER, GALLBLADDER, AND BILIARY TREE: The liver is normal in size, shape, and attenuation. No focal hepatic lesion or biliary ductal dilatation is present. The gallbladder is unremarkable with no evidence of radiopaque gallstones, gallbladder wall thickening, or obvious pericholecystic inflammatory changes. PANCREAS: Unremarkable. SPLEEN: Unremarkable. ADRENAL GLANDS: Unremarkable. KIDNEYS AND URETERS: The kidneys are normal in size, shape, and attenuation. No hydronephrosis, hydroureter, or calculi seen. No perinephric stranding. BLADDER: Unremarkable. GASTROINTESTINAL TRACT: The small and large bowel are unremarkable. The appendix is unremarkable. ABDOMINAL WALL: No significant hernia is appreciated. LYMPH NODES: Normal. VASCULAR: Unremarkable. PELVIC VISCERA: Unremarkable. OSSEOUS STRUCTURES: Unremarkable. CT/CT abdomen pelvis w IV con IMPRESSION: No acute CT findings. Fleischner guidelines were followed.
[2022-06-07 09:36] VITALS: BP 125/69; PULSE 93; RESP 18; TEMP 36.4; O2SAT 97; BMI 27.2
--- NOTE | 2022-06-07 09:55 | ECG_ITS ---
Test Reason : Chest Pain Blood Pressure : / mmHG Vent. Rate : 085 BPM Atrial Rate : 085 BPM P-R Int : 166 ms QRS Dur : 086 ms QT Int : 354 ms P-R-T Axes : 050 085 030 degrees QTc Int : 421 ms Normal sinus rhythm Normal ECG When compared with ECG of 13-JAN-2022 13:44, No significant change was found Referred By: Melissa Sol Electronically Signed By:AYO RODRIGUEZ MD
--- NOTE | 2022-06-07 09:58 | ED_ITS ---
HPI - Abdominal Pain General Chief Complaint: Abdominal Pain <TANGELA Hinds Last Filed: 06/07/22 15:41> Stated Complaint: vomiting abd pain <Melissa Sol NP - Last Filed: 06/07/22 15:41> Time Seen by Provider: 06/07/22 09:45 <Melissa Sol NP - Last Filed: 06/07/22 15:41> Source: patient <Melissa Sol NP - Last Filed: 06/07/22 15:41> Mode of arrival: ambulatory <TANGELA Hinds Last Filed: 06/07/22 15:41> Limitations: no limitations <TANGELA Hinds Last Filed: 06/07/22 15:41> History of Present Illness HPI narrative: 22 yo male with an unknown cardiac condition since age 15 followed by peds cards here with complaints of 2 days of upper abdominal pain/vomiting after eating spoiled milk. No diarrhea, constipation, urinary symptoms, fevers, chills. <TANGELA Hinds Last Filed: 06/07/22 15:41> Related Data Home Medications: Previous Rx's Medication Instructions Recorded ondansetron 4 mg disintegrating 4 mg PO Q6H PRN nausea and 06/07/22 tablet vomiting #15 tabs <TANGELA Hinds Last Filed: 06/07/22 15:41> Allergies/Adverse Reactions: Allergies Allergy/AdvReac Type Severity Reaction Status Date / Time blueberry [BLUEBERRY] Allergy Unknown RASH Verified 06/07/22 09:42 blueberries Allergy Unknown Vomiting Uncoded 02/21/20 02:41 <Melissa Sol NP - Last Filed: 06/07/22 15:41> Review of Systems Review of Systems Yes all other systems are reviewed and are negative <TANGELA Hinds Last Filed: 06/07/22 15:41> Constitutional: Reports no additional constitutional complaints, Denies body ache(s), Denies chills, Denies fever(s), Denies headache(s) and Denies weakness <TANGELA Hinds Last Filed: 06/07/22 15:41> Eyes: Reports no additional eye complaints and Denies change in vision <Melissa Sol [employer] MEASURES SEALER - Last Filed: 06/07/22 15:41> Reports system reviewed and no additional complaints, except as documented, Denies dizziness, Denies headache(s), Denies nasal congestion, Denies nasal discharge and Denies neck pain <Melissa Sol [employer] MEAS[employer] SEALER - Last Filed: 06/07/22 15:41> Cardiovascular: Reports no additional cardiovascular complaints, Denies chest pain, Denies leg edema and Denies dyspnea <Melissa Sol [employer] ME[employer] SEALER - Last Filed: 06/07/22 15:41> Respiratory: Reports no additional respiratory complaints, Denies cough and Denies dyspnea <Melissa Sol [employer] ME[employer] SEALER - Last Filed: 06/07/22 15:41> Gastrointestinal: Reports no additional gastrointestinal complaints, Reports abdominal pain, Denies diarrhea, Reports nausea and Reports vomiting <Melissa Sol [employer] ME[employer] SEALER - Last Filed: 06/07/22 15:41> Genitourinary: Denies urinary incontinence <Melissa Sol [employer] ME[employer] SEALER - Last Filed: 06/07/22 15:41> Musculoskeletal: Reports no additional musculoskeletal complaints, Denies back pain, Denies arthralgias, Denies joint swelling, Denies neck pain, Denies numbness and Denies tingling <Melissa Sol [employer] SEALER - Last Filed: 06/07/22 15:41> Skin/Breast: Reports system reviewed and no additional complaints, except as docu and Denies rash <Melissa Sol [employer] SEALER - Last Filed: 06/07/22 15:41> Reports system reviewed and no additional complaints, except as documented, Denies dizziness, Denies headache(s), Denies numbness, Denies tingling and Denies weakness <Melissa Sol [employer] SEALER - Last Filed: 06/07/22 15:41> PMF Past Medical History Attestation statement: The following information was validated with the patient. <Melissa Sol [employer] SEALER - Last Filed: 06/07/22 15:41> Source: old records reviewed and nursing notes reviewed <Melissa Sol [employer] ME[employer] SEALER - Last Filed: 06/07/22 15:41> Medical History: Medical History No known health problems <Melissa Sol NP - Last Filed: 06/07/22 15:41> Social History Social History: Social History Alcohol intake: current Alcohol intake frequency: holidays/special occasions only Substance Use Type: Marijuana <Melissa Sol NP - Last Filed: 06/07/22 15:41> Physical Exam ED Vital Signs: Vital Signs - 24 hr 06/07/22 09:36 06/07/22 11:35 06/07/22 12:47 Temperature 97.5 F 99.3 F 99.1 F Pulse Rate 93 90 86 Respiratory Rate 18 20 16 Blood Pressure 125/69 105/68 132/48 L Pulse Oximetry 97 97 98 Oxygen Delivery Method Room Air Room Air Room Air 06/07/22 14:48 Temperature 98.4 F Pulse Rate 80 Respiratory Rate 16 Blood Pressure 106/64 Pulse Oximetry 99 Oxygen Delivery Method Room Air BMI result Body Mass Index 27.2 <Melissa Sol NP - Last Filed: 06/07/22 15:41> Vital Signs - 24 hr 06/07/22 09:36 06/07/22 11:35 06/07/22 12:47 Temperature 97.5 F 99.3 F 99.1 F Pulse Rate 93 90 86 Respiratory Rate 18 20 16 Blood Pressure 125/69 105/68 132/48 L Pulse Oximetry 97 97 98 Oxygen Delivery Method Room Air Room Air Room Air 06/07/22 14:48 Temperature 98.4 F Pulse Rate 80 Respiratory Rate 16 Blood Pressure 106/64 Pulse Oximetry 99 Oxygen Delivery Method Room Air BMI result Body Mass Index 27.2 <Emeka Zhou MD - Last Filed: 06/07/22 16:26> Const General: cooperative, healthy appearing, comfortable and no acute distress <Melissa Sol NP - Last Filed: 06/07/22 15:41> Orientation/consciousness: patient oriented x3 <Melissa Sol NP - Last Filed: 06/07/22 15:41> Limitations: no limitations <Melissa Sol [employer] SEALER - Last Filed: 06/07/22 15:41> HENMT Head: Yes normal to inspection <Melissa Sol [employer] ME[employer] SEALER - Last Filed: 06/07/22 15:41> Ears: hearing grossly normal bilaterally <Melissa Sol [employer] ME[employer] SE[employer]ER - Last Filed: 06/07/22 15:41> Eyes General: appearance normal, both eyes and all related structures <Melissa Sol [employer] SEALER - Last Filed: 06/07/22 15:41> Neck Neck: Yes normal visual inspection <Melissa Sol [employer] ME[employer] SEALER - Last Filed: 06/07/22 15:41> Chest Chest palpation & inspection: normal inspection of the chest <Melissa Sol [employer] SEALER - Last Filed: 06/07/22 15:41> Resp Effort & Inspection: normal respiratory effort <Melissa Sol WE[employer] ME[employer] SEALER - Last Filed: 06/07/22 15:41> Auscultation: clear to auscultation bilaterally <Melissa Sol WE[employer] ME[employer] SEALER - Last Filed: 06/07/22 15:41> Cardio Rate: regular rate <Melissa Sol WE[employer] AND ME[employer] SEALER - Last Filed: 06/07/22 15:41> Rhythm: regular rhythm <Melissa Sol WE[employer] AND MEAS[employer] SEALER - Last Filed: 06/07/22 15:41> Peripheral pulses: Peripheral pulses 2+ throughout <Melissa Sol WE[employer] AND MEAS[employer] SEALER - Last Filed: 06/07/22 15:41> GI Inspection: Yes normal to inspection <Melissa Sol WE[employer] ME[employer] SEALER - Last Filed: 06/07/22 15:41> Palpation (GI): Soft to palpation and Tenderness to palpation present (GI) (mild tenderness to epigastric-no rebound or guarding ) <Melissa Sol WE[employer] AND MEAS[employer] SEALER - Last Filed: 06/07/22 15:41> Auscultation: normal bowel sounds <Melissa Sol WE[employer] ME[employer] SEALER - Last Filed: 06/07/22 15:41> General: Yes no CVA tenderness <Melissa Sol WE[employer] AND MEAS[employer] SEALER - Last Filed: 06/07/22 15:41> Back/Spine/Pelvis Back: no CVA tenderness <Melissa Sol NP - Last Filed: 06/07/22 15:41> Thoracic/Lumbar Spine: thoracic and lumbar spine normal to inspection <Melissa Sol NP - Last Filed: 06/07/22 15:41> Skin General skin exam: no rashes or lesions noted <Melissa Sol NP - Last Filed: 06/07/22 15:41> Neuro General: patient oriented x3 and moves all extremities <Melissa Sol NP - Last Filed: 06/07/22 15:41> Cognition (Neuro): normal cognition <Melissa Sol NP - Last Filed: 06/07/22 15:41> Gait exam (Neuro): Normal gait present <Melissa Sol NP - Last Filed: 06/07/22 15:41> Extrem General: Yes normal to inspection, Yes no pedal edema and Yes no calf tenderness <Melissa Sol NP - Last Filed: 06/07/22 15:41> Course Course Course Narrative: Labs and urine are unremarkable. Patient to this point has received Tylenol, famotidine, Zofran, GI cocktail. He is tolerating sips of joanne manfred but reports continued pain on change in his left side of his abdomen. Will obtain CT abdomen and pelvis. Patient to be given morphine <Melissa oSl NP - Last Filed: 06/07/22 15:41> Reevaluation(s) Reevaluation #1: 1540-CT scan negative for any acute finding. Patient has had 12 oz a gi nger manfred w/ no additional vomiting episodes. Plan for discharge home. Reviewed worrisome signs and symptoms of when to return to the emergency room. Comfortable plan for discharge home. <Melissa Sol NP - Last Filed: 06/07/22 15:41> Medical Decision Making Medical Decision Making MDM Narrative: 22-year-old male here with 2 days of upper abdominal pain and vomiting after drinking some spoiled milk. On exam no focal abdominal tenderness. Vital stable. Patient reports inability to tolerate p.o. due to pain and vomiting. Will check labs, UA, viral testing. Patient to have PIV, IV fluids, antiemetic. Will obtain EKG prior to medication administration to check QTC. <Melissa Sol NP - Last Filed: 06/07/22 15:41> Differential Diagnosis Differential Diagnoses: The differential diagnosis associated with the presentation includes <Melissa Sol NP - Last Filed: 06/07/22 15:41> Gastritis, viral syndrome, gastroenteritis low concern for appendicitis/diverticulitis <Melissa Sol NP - Last Filed: 06/07/22 15:41> Lab Data MDM Lab Attestation statement: I reviewed the patient's lab results. <Melissa Sol NP - Last Filed: 06/07/22 15:41> Result Diagrams: 06/07/22 10:13 06/07/22 10:13 <Melissa Sol NP - Last Filed: 06/07/22 15:41> Labs: Lab Results 06/07/22 06/07/22 06/07/22 Range/Units 10:13 10:13 10:13 WBC 6.6 (4.8-10.8) X10*3/uL RBC 5.75 (4.60-5.80) X10*6/uL Hgb 16.5 (14.0-18.0) g/dl Hct 48.3 (42.0-52.0) % MCV 84.0 (80.0-98.0) fL MCH 28.7 (27.0-33.0) pg MCHC 34.2 (31.0-36.0) g/dl RDW 13.7 (11.0-16.0) % Plt Count 194 (160-400) X10*3/uL MPV 9.8 (9.4-12.4) fL Immature Gran % (Auto) 0.2 (0.0-0.4) % Neut % (Auto) 82.9 H (45-73) % Lymph % (Auto) 7.8 L (20-40) % [place] % (Auto) 8.7 (2-11) % Eos % (Auto) 0.2 (0-4) % Baso % (Auto) 0.2 (0-2) % Lymph # (Auto) 0.5 L (1.2-4.9) X10*3/uL [place] # (Auto) 0.6 (0.1-1.2) X10*3/uL Eos # (Auto) 0.0 (0.0-0.4) X10*3/uL Baso # (Auto) 0.0 (0.0-0.2) X10*3/uL Abs Immat Gran (auto) 0.01 (0.00-0.03) X10*3/uL Absolute Neuts (auto) 5.5 (2.0-8.3) x10*3/uL Absolute Nucleated RBC 0.000 (0.0-0.012) X10*3/uL Nucleated RBC % (auto) 0.0 (0.0-0.2) /100WBC Sodium 139 (135-145) mmol/L Potassium 3.8 (3.3-5.1) mmol/L Chloride 103 (96-108) mmol/L Carbon Dioxide 28 (22-29) mmol/L Anion Gap 12 (12-20) BUN 13 (9-16) mg/dL Creatinine 0.95 (0.5-1.4) mg/dL Estim Creat Clear Calc 125.9 Estimated GFR > 60 Random Glucose 99 (60-115) mg/dL Calcium 9.3 (8.4-10.2) mg/dL Magnesium 1.8 (1.6-2.6) mg/dL Total Bilirubin 1.0 (0.0-1.0) mg/dL Direct Bilirubin 0.4 (0.0-0.5) mg/dL AST 31 (5-37) U/L ALT 29 (0-40) U/L Alkaline Phosphatase 77 (39-117) U/L Total Protein 8.0 (6.5-8.0) g/dL Albumin 4.6 (3.5-5.0) g/dL Lipase 12 (8-78) U/L Urine Color Urine Appearance Urine pH (5.0-9.0) Ur Specific [place] (1.005-1.025) Urine Protein (Neg-Trace) mg/dL Urine Glucose (UA) (Negative) mg/dL Urine Ketones (Negative) mg/dL Urine Blood (Negative) Urine Nitrite (Negative) Ur Leukocyte Esterase (Negative) Influenza Type A (PCR) NEGATIVE (Negative) Influenza Type B (PCR) NEGATIVE (Negative) RSV RNA Qual (PCR) NEGATIVE (Negative) SARS-CoV-2 RNA (RT-PCR) NEGATIVE (Negative) 06/07/22 Range/Units 10:44 WBC (4.8-10.8) X10*3/uL RBC (4.60-5.80) X10*6/uL Hgb (14.0-18.0) g/dl Hct (42.0-52.0) % MCV (80.0-98.0) fL MCH (27.0-33.0) pg MCHC (31.0-36.0) g/dl RDW (11.0-16.0) % Plt Count (160-400) X10*3/uL MPV (9.4-12.4) fL Immature Gran % (Auto) (0.0-0.4) % Neut % (Auto) (45-73) % Lymph % (Auto) (20-40) % [place] % (Auto) (2-11) % Eos % (Auto) (0-4) % Baso % (Auto) (0-2) % Lymph # (Auto) (1.2-4.9) X10*3/uL [place] # (Auto) (0.1-1.2) X10*3/uL Eos # (Auto) (0.0-0.4) X10*3/uL Baso # (Auto) (0.0-0.2) X10*3/uL Abs Immat Gran (auto) (0.00-0.03) X10*3/uL Absolute Neuts (auto) (2.0-8.3) x10*3/uL Absolute Nucleated RBC (0.0-0.012) X10*3/uL Nucleated RBC % (auto) (0.0-0.2) /100WBC Sodium (135-145) mmol/L Potassium (3.3-5.1) mmol/L Chloride (96-108) mmol/L Carbon Dioxide (22-29) mmol/L Anion Gap (12-20) BUN (9-16) mg/dL Creatinine (0.5-1.4) mg/dL Estim Creat Clear Calc Estimated GFR Random Glucose (60-115) mg/dL Calcium (8.4-10.2) mg/dL Magnesium (1.6-2.6) mg/dL Total Bilirubin (0.0-1.0) mg/dL Direct Bilirubin (0.0-0.5) mg/dL AST (5-37) U/L ALT (0-40) U/L Alkaline Phosphatase (39-117) U/L Total Protein (6.5-8.0) g/dL Albumin (3.5-5.0) g/dL Lipase (8-78) U/L Urine Color Dark Yellow Urine Appearance Clear Urine pH 6.0 (5.0-9.0) Ur Specific [place] >= 1.030 H (1.005-1.025) Urine Protein Trace (Neg-Trace) mg/dL Urine Glucose (UA) Negative (Negative) mg/dL Urine Ketones 15 (Negative) mg/dL Urine Blood Negative (Negative) Urine Nitrite Negative (Negative) Ur Leukocyte Esterase Negative (Negative) Influenza Type A (PCR) (Negative) Influenza Type B (PCR) (Negative) RSV RNA Qual (PCR) (Negative) SARS-CoV-2 RNA (RT-PCR) (Negative) <Melissa Sol, [employer] SEALER - Last Filed: 06/07/22 15:41> Lab Results 06/07/22 06/07/22 06/07/22 Range/Units 10:13 10:13 10:13 WBC 6.6 (4.8-10.8) X10*3/uL RBC 5.75 (4.60-5.80) X10*6/uL Hgb 16.5 (14.0-18.0) g/dl Hct 48.3 (42.0-52.0) % MCV 84.0 (80.0-98.0) fL MCH 28.7 (27.0-33.0) pg MCHC 34.2 (31.0-36.0) g/dl RDW 13.7 (11.0-16.0) % Plt Count 194 (160-400) X10*3/uL MPV 9.8 (9.4-12.4) fL Immature Gran % (Auto) 0.2 (0.0-0.4) % Neut % (Auto) 82.9 H (45-73) % Lymph % (Auto) 7.8 L (20-40) % [place] % (Auto) 8.7 (2-11) % Eos % (Auto) 0.2 (0-4) % Baso % (Auto) 0.2 (0-2) % Lymph # (Auto) 0.5 L (1.2-4.9) X10*3/uL [place] # (Auto) 0.6 (0.1-1.2) X10*3/uL Eos # (Auto) 0.0 (0.0-0.4) X10*3/uL Baso # (Auto) 0.0 (0.0-0.2) X10*3/uL Abs Immat Gran (auto) 0.01 (0.00-0.03) X10*3/uL Absolute Neuts (auto) 5.5 (2.0-8.3) x10*3/uL Absolute Nucleated RBC 0.000 (0.0-0.012) X10*3/uL Nucleated RBC % (auto) 0.0 (0.0-0.2) /100WBC Sodium 139 (135-145) mmol/L Potassium 3.8 (3.3-5.1) mmol/L Chloride 103 (96-108) mmol/L Carbon Dioxide 28 (22-29) mmol/L Anion Gap 12 (12-20) BUN 13 (9-16) mg/dL Creatinine 0.95 (0.5-1.4) mg/dL Estim Creat Clear Calc 125.9 Estimated GFR > 60 Random Glucose 99 (60-115) mg/dL Calcium 9.3 (8.4-10.2) mg/dL Magnesium 1.8 (1.6-2.6) mg/dL Total Bilirubin 1.0 (0.0-1.0) mg/dL Direct Bilirubin 0.4 (0.0-0.5) mg/dL AST 31 (5-37) U/L ALT 29 (0-40) U/L Alkaline Phosphatase 77 (39-117) U/L Total Protein 8.0 (6.5-8.0) g/dL Albumin 4.6 (3.5-5.0) g/dL Lipase 12 (8-78) U/L Urine Color Urine Appearance Urine pH (5.0-9.0) Ur Specific [place] (1.005-1.025) Urine Protein (Neg-Trace) mg/dL Urine Glucose (UA) (Negative) mg/dL Urine Ketones (Negative) mg/dL Urine Blood (Negative) Urine Nitrite (Negative) Ur Leukocyte Esterase (Negative) Influenza Type A (PCR) NEGATIVE (Negative) Influenza Type B (PCR) NEGATIVE (Negative) RSV RNA Qual (PCR) NEGATIVE (Negative) SARS-CoV-2 RNA (RT-PCR) NEGATIVE (Negative) 06/07/22 Range/Units 10:44 WBC (4.8-10.8) X10*3/uL RBC (4.60-5.80) X10*6/uL Hgb (14.0-18.0) g/dl Hct (42.0-52.0) % MCV (80.0-98.0) fL MCH (27.0-33.0) pg MCHC (31.0-36.0) g/dl RDW (11.0-16.0) % Plt Count (160-400) X10*3/uL MPV (9.4-12.4) fL Immature Gran % (Auto) (0.0-0.4) % Neut % (Auto) (45-73) % Lymph % (Auto) (20-40) % [place] % (Auto) (2-11) % Eos % (Auto) (0-4) % Baso % (Auto) (0-2) % Lymph # (Auto) (1.2-4.9) X10*3/uL [place] # (Auto) (0.1-1.2) X10*3/uL Eos # (Auto) (0.0-0.4) X10*3/uL Baso # (Auto) (0.0-0.2) X10*3/uL Abs Immat Gran (auto) (0.00-0.03) X10*3/uL Absolute Neuts (auto) (2.0-8.3) x10*3/uL Absolute Nucleated RBC (0.0-0.012) X10*3/uL Nucleated RBC % (auto) (0.0-0.2) /100WBC Sodium (135-145) mmol/L Potassium (3.3-5.1) mmol/L Chloride (96-108) mmol/L Carbon Dioxide (22-29) mmol/L Anion Gap (12-20) BUN (9-16) mg/dL Creatinine (0.5-1.4) mg/dL Estim Creat Clear Calc Estimated GFR Random Glucose (60-115) mg/dL Calcium (8.4-10.2) mg/dL Magnesium (1.6-2.6) mg/dL Total Bilirubin (0.0-1.0) mg/dL Direct Bilirubin (0.0-0.5) mg/dL AST (5-37) U/L ALT (0-40) U/L Alkaline Phosphatase (39-117) U/L Total Protein (6.5-8.0) g/dL Albumin (3.5-5.0) g/dL Lipase (8-78) U/L Urine Color Dark Yellow Urine Appearance Clear Urine pH 6.0 (5.0-9.0) Ur Specific [place] >= 1.030 H (1.005-1.025) Urine Protein Trace (Neg-Trace) mg/dL Urine Glucose (UA) Negative (Negative) mg/dL Urine Ketones 15 (Negative) mg/dL Urine Blood Negative (Negative) Urine Nitrite Negative (Negative) Ur Leukocyte Esterase Negative (Negative) Influenza Type A (PCR) (Negative) Influenza Type B (PCR) (Negative) RSV RNA Qual (PCR) (Negative) SARS-CoV-2 RNA (RT-PCR) (Negative) <Emeka Zhou MD - Last Filed: 06/07/22 16:26> Independent Interpretation I performed an independent interpretation of an: EKG and CT Scan (I independently reviewed the CT scan which shows no acute finding) <Melissa Sol NP - Last Filed: 06/07/22 15:41> Interpretation: Independently reviewed the EKG which shows normal sinus rhythm with a rate 85, normal MN, normal QRS, normal QT <Melissa oSl NP - Last Filed: 06/07/22 15:41> Radiology Impression Discussion of test interpretation with radiology: I have reviewed the radiologist's reading. <Melissa Sol NP - Last Filed: 06/07/22 15:41> Radiologist Impression: [address] [address] [address] Scan Report Signed Patient: Laxmi Olivas MR#: [id number] : 2000 Acct:[id number] Age/Sex: 22 / M ADM Date: 06/07/22 Loc: HO.ED Attending Dr: Ordering Physician: Melissa Nguyen NP Date of Service: 06/07/22 Procedure(s): CT abdomen pelvis w IV con Accession Number(s): [id number] cc: Melissa Nguyen NP~ EXAMINATION: CT ABDOMEN AND PELVIS WITH CONTRAST? CLINICAL INFORMATION: Left-sided abdominal pain, vomiting? COMPARISON: None? TECHNIQUE: Multidetector volumetric images were obtained from the superior aspect of the liver through the pubic symphysis following administration 85 mL of Omnipaque 350 intravenous contrast. Sagittal and coronal reformatted images were obtained on the technologist's workstation.? Oral contrast: No This CT examination was performed using dose optimization techniques as appropriate, variously including the following: *Automated exposure control *Adjustment of mA and/or kV according to patient size (this includes techniques or standardized protocols for targeted exams where dose is matched to indication/reason for exam; i.e. extremities or head) *Use of iterative reconstruction technique DLP: 546 mGy-cm FINDINGS: LUNG BASES: The visualized lung bases are unremarkable.? LIVER, GALLBLADDER, AND BILIARY TREE: The liver is normal in size, shape, and attenuation. No focal hepatic lesion or biliary ductal dilatation is present. The gallbladder is unremarkable with no evidence of radiopaque gallstones, gallbladder wall thickening, or obvious pericholecystic inflammatory changes.? PANCREAS: Unremarkable.? SPLEEN: Unremarkable.? ADRENAL GLANDS: Unremarkable.? KIDNEYS AND URETERS: The kidneys are normal in size, shape, and attenuation. No hydronephrosis, hydroureter, or calculi seen. No perinephric stranding. ? BLADDER: Unremarkable.? GASTROINTESTINAL TRACT: The small and large bowel are unremarkable. The appendix is unremarkable.? ABDOMINAL WALL: No significant hernia is appreciated.? LYMPH NODES: Normal. VASCULAR: Unremarkable. PELVIC VISCERA: Unremarkable.? OSSEOUS STRUCTURES: Unremarkable.? CT/CT abdomen pelvis w IV con IMPRESSION: No acute CT findings.? ? Fleischner guidelines were followed. <Melissa Sol NP - Last Filed: 06/07/22 15:41> Attestation Attending Attestation: I personally reviewed PA/resident/nurse practitioner note. I reviewed a all results and treatment plan. I agree with the assessment and plan. I agree with disposition <Emeka Zhou MD - Last Filed: 06/07/22 16:26> Medications Administered Discontinued Medications Generic Name Dose Route Start Last Admin Trade Name Freq PRN Reason Stop Dose Admin Acetaminophen 975 mg 06/07/22 13:00 06/07/22 13:07 Acetaminophen 325 Mg Tablet PO 06/07/22 13:01 975 mg ONCE ONE Administration Al Hydroxide/Mg Hydroxide 30 ml 06/07/22 11:50 06/07/22 12:08 Magnesium Hydrox/Alum Hydrox 30 Ml Oral.Susp PO 06/07/22 11:51 30 ml ONCE ONE Administration Famotidine 20 mg 06/07/22 10:30 06/07/22 10:46 Famotidine/Pf 20 Mg/2 Ml Vial IVPUSH 06/07/22 10:31 20 mg ONCE ONE Administration Sodium Chloride 1,000 mls @ 999 mls/hr 06/07/22 09:54 06/07/22 11:33 Ns IV 06/07/22 10:54 Infused .Q1H1M STA Infusion Iohexol 100 ml 06/07/22 14:40 06/07/22 14:41 Iohexol 350 Mg/Ml 100 Ml Infus..Btl IV 06/07/22 14:41 85 ml ONCE ONE Administration Lidocaine HCl 15 ml 06/07/22 11:50 06/07/22 12:08 Lidocaine Hcl Viscous 2 % 15 Ml Solution MUCOUS MEM 06/07/22 11:51 15 ml ONCE ONE Administration Morphine Sulfate 4 mg 06/07/22 13:27 06/07/22 13:33 Morphine Sulfate 4 Mg/Ml Cartridge IVPUSH 06/07/22 13:28 4 mg ONCE ONE Administration Protocol Ondansetron HCl 4 mg 06/07/22 10:30 06/07/22 10:46 Ondansetron Hcl 4 Mg/2 Ml Vial IVPUSH 06/07/22 10:31 4 mg ONCE ONE Administration <Melissa Sol NP - Last Filed: 06/07/22 15:41> Medications Administered Discontinued Medications Generic Name Dose Route Start Last Admin Trade Name Freq PRN Reason Stop Dose Admin Acetaminophen 975 mg 06/07/22 13:00 06/07/22 13:07 Acetaminophen 325 Mg Tablet PO 06/07/22 13:01 975 mg ONCE ONE Administration Al Hydroxide/Mg Hydroxide 30 ml 06/07/22 11:50 06/07/22 12:08 Magnesium Hydrox/Alum Hydrox 30 Ml Oral.Susp PO 06/07/22 11:51 30 ml ONCE ONE Administration Famotidine 20 mg 06/07/22 10:30 06/07/22 10:46 Famotidine/Pf 20 Mg/2 Ml Vial IVPUSH 06/07/22 10:31 20 mg ONCE ONE Administration Sodium Chloride 1,000 mls @ 999 mls/hr 06/07/22 09:54 06/07/22 11:33 Ns IV 06/07/22 10:54 Infused .Q1H1M STA Infusion Iohexol 100 ml 06/07/22 14:40 06/07/22 14:41 Iohexol 350 Mg/Ml 100 Ml Infus..Btl IV 06/07/22 14:41 85 ml ONCE ONE Administration Lidocaine HCl 15 ml 06/07/22 11:50 06/07/22 12:08 Lidocaine Hcl Viscous 2 % 15 Ml Solution MUCOUS MEM 06/07/22 11:51 15 ml ONCE ONE Administration Morphine Sulfate 4 mg 06/07/22 13:27 06/07/22 13:33 Morphine Sulfate 4 Mg/Ml Cartridge IVPUSH 06/07/22 13:28 4 mg ONCE ONE Administration Protocol Ondansetron HCl 4 mg 06/07/22 10:30 06/07/22 10:46 Ondansetron Hcl 4 Mg/2 Ml Vial IVPUSH 06/07/22 10:31 4 mg ONCE ONE Administration <Emeka Zhou MD - Last Filed: 06/07/22 16:26> Discharge Plan Discharge Clinical Impression: Abdominal pain <Melissa Sol NP - Last Filed: 06/07/22 15:41> Patient Disposition: Home, Self-Care <Melissa Sol NP - Last Filed: 06/07/22 15:41> Instructions: Abdominal Pain (ED) <Melissa Sol NP - Last Filed: 06/07/22 15:41> Additional Instructions: Labs, urine testing, testing for (flu/covid/rsv) are negative Your CT scan shows no acute finding Take the medications as prescribed Increase fluids, rest <Melissa Sol NP - Last Filed: 06/07/22 15:41> Prescriptions: New ondansetron 4 mg tablet,disintegrating 4 mg PO Q6H PRN (Reason: nausea and vomiting) Qty: 15 0RF <Melissa Sol NP - Last Filed: 06/07/22 15:41> Referrals: Physician,None [Primary Care Provider] - <Melissa Sol NP - Last Filed: 06/07/22 15:41> Stand Alone Forms: Work/School Release <Melissa Sol NP - Last Filed: 06/07/22 15:41> Interventions: ED Discharge Assessment Last Done: 06/07/22 15:44 <Melissa Sol NP - Last Filed: 06/07/22 15:41> Discharge Date/Time: 06/07/22 15:52 <Melissa Sol NP - Last Filed: 06/07/22 15:41>
[2022-06-07 10:19] LABS: MANUAL DIFF FLAG NO
[2022-06-07] MEDS: 0.9 % Sodium Chloride 1,000 ML 999 ML IV (10:20)
[2022-06-07 10:22] LABS: Basophils Percent Auto 0.2 % (0-2); Eosinophils Percent Auto 0.2 % (0-4); Hematocrit 48.3 % (42.0-52.0); Hemoglobin 16.5 g/dl (14.0-18.0); Imm Gran Abs Auto 0.01 X10*3/uL (0.00-0.03); Imm Gran Pct Auto 0.2 % (0.0-0.4); Lymphocytes Absolute Auto 0.5 X10*3/uL (1.2-4.9); Lymphocytes Percent Auto 7.8 % (20-40); Mean Corpuscular HGB Conc 34.2 g/dl (31.0-36.0); Mean Corpuscular Hemoglobin 28.7 pg (27.0-33.0); Mean Platelet Volume 9.8 fL (9.4-12.4); Monocytes Absolute Auto 0.6 X10*3/uL (0.1-1.2); Monocytes Percent Auto 8.7 % (2-11); Neutrophils Absolute Auto 5.5 x10*3/uL (2.0-8.3); Neutrophils Percent Auto 82.9 % (45-73); Platelet Count 194 X10*3/uL (160-400); Red Blood Count 5.75 X10*6/uL (4.60-5.80); Red Cell Distribution Width 13.7 % (11.0-16.0); White Blood Count 6.6 X10*3/uL (4.8-10.8)
[2022-06-07 10:37] LABS: Alanine Aminotransferase 29 U/L (0-40); Albumin Level 4.6 g/dL (3.5-5.0); Alkaline Phosphatase 77 U/L (39-117); Anion Gap 12 (12-20); Aspartate Amino Transferase 31 U/L (5-37); Bilirubin Direct 0.4 mg/dL (0.0-0.5); Blood Urea Nitrogen 13 mg/dL (9-16); Calcium 9.3 mg/dL (8.4-10.2); Carbon Dioxide 28 mmol/L (22-29); Chloride 103 mmol/L (96-108); Creatinine Clr Calc Pharmacy 125.9; Estimated Glomerular Filt Rate > 60; Glucose Random 99 mg/dL (60-115); Lipase 12 U/L (8-78); Magnesium 1.8 mg/dL (1.6-2.6); Potassium 3.8 mmol/L (3.3-5.1); Sodium 139 mmol/L (135-145)
[2022-06-07] MEDS: ondansetron HCL 4 MG/2 ML VIAL IVPUSH (10:46)
[2022-06-07] MEDS: Famotidine/PF 20 MG/2 ML VIAL IVPUSH (10:46)
[2022-06-07 10:59] LABS: Influenza A PCR NEGATIVE (Negative); Influenza B PCR NEGATIVE (Negative); Resp Syncy Virus RNA Qual PCR NEGATIVE (Negative); SARS COV2 PCR INHOUSE NEGATIVE (Negative)
[2022-06-07 11:00] LABS: Appearance Urine Clear; Color Urine Dark Yellow; Glucose Urine UA Negative (Negative); Leukocyte Esterase Urine Negative (Negative); Nitrite Urine Negative (Negative); Specific Gravity - Urine >= 1.030 (1.005-1.025); Urine Blood Negative (Negative); Urine Ketones 15 mg/dL (Negative); Urine Protein Trace mg/dL (Neg-Trace)
--- NOTE | 2022-06-07 11:00 | PC.NURSE ---
pt a+o x4, vss. pt c/o LUQ pain that started last night. he states that he drank spoiled milk on Friday and thinks the pain may be related to that. he reports nausea, denies v/d. he also reports rock. no change in appetite/bm pattern. 20g IV inserted, meds given as documented.
[2022-06-07 11:35] VITALS: BP 105/68; PULSE 90; RESP 20; TEMP 37.4; O2SAT 97
[2022-06-07] MEDS: Lidocaine HCl Viscous 2 % 15 ML SOLUTION MUCOUS MEM (12:08)
[2022-06-07] MEDS: Magnesium Hydrox/Alum Hydrox 30 ML ORAL.SUSP PO (12:08)
[2022-06-07 12:47] VITALS: BP 132/48; PULSE 86; RESP 16; TEMP 37.3; O2SAT 98
[2022-06-07] MEDS: Acetaminophen 325 MG TABLET 975 MG PO (13:07)
--- NOTE | 2022-06-07 13:28 | PC.NURSE ---
pt states pain unchanged, no nausea, informed of need for ct, will offer morphine for pain
[2022-06-07] MEDS: Morphine Sulfate 4 MG/ML CARTRIDGE IVPUSH (13:33)
[2022-06-07] MEDS: iohexoL 350 MG/ML 100 ML INFUS..BTL IV (14:41)
[2022-06-07 14:48] VITALS: BP 106/64; PULSE 80; RESP 16; TEMP 36.9; O2SAT 99
== END 2022-06-07 15:52 | disposition home or self-care (01) ==
PROVIDERS: Nurse Practitioner Family; Emergency Provider Emergency Medicine
DX: R10.9 Unspecified abdominal pain (principal); R11.10 Vomiting, unspecified; Z20.822 Contact with and (suspected) exposure to COVID-19
CPT/HCPCS: 0241U; 74177; 80048; 80076; 81003; 83690; 83735; 85025; 93005; 96361; 96374; 96375; 99284; J2270; J2405; Q9967

== ENCOUNTER 2022-07-04 01:58 | Emergency (ER) | payer OTHER, SELFPAY ==
--- NOTE | ~2022-07-04 | XR_ITS ---
EXAMINATION: XR HAND, RIGHT CLINICAL INFORMATION: Third digit injury COMPARISON: None TECHNIQUE: PA, lateral, and oblique views of the right hand. FINDINGS: No fracture or dislocation. Anatomic alignment. Joint spaces are maintained. Soft tissues are unremarkable. XR/XR hand RT 2V IMPRESSION: Normal right hand.
[2022-07-04 02:07] VITALS: BP 114/63; PULSE 62; RESP 18; TEMP 37; O2SAT 98; BMI 27.2
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
[2022-07-04] MEDS: Ibuprofen 600 MG TABLET PO (02:36)
== END 2022-07-04 03:05 | disposition home or self-care (01) ==
PROVIDERS: Emergency Provider Emergency Medicine
DX: S60.031A Contusion of right middle finger without damage to nail, initial encounter (principal); Y29.XXXA Contact with blunt object, undetermined intent, initial encounter; Y93.9 Activity, unspecified; Y92.9 Unspecified place or not applicable; Y99.0 Civilian activity done for income or pay; Z79.899 Other long term (current) drug therapy
CPT/HCPCS: 73120; 99283; 99284

== ENCOUNTER 2023-10-22 00:30 | Emergency (ER) | payer SELFPAY ==
--- NOTE | ~2023-10-22 | XR_ITS ---
EXAMINATION: XR CHEST CLINICAL INFORMATION: Hemoptysis COMPARISON: Chest x-rays of 01/13/2022 TECHNIQUE: Frontal view of the chest was obtained. FINDINGS: No significant abnormality is noted involving the heart, lungs, mediastinum, bony thorax or soft tissues. XR/XR chest 1V IMPRESSION: No acute pulmonary process. Unremarkable examination.
[2023-10-22 01:06] VITALS: BP 124/73; PULSE 69; RESP 18; TEMP 36.8; O2SAT 98; BMI 25.8
[2023-10-22 01:18] LABS: MANUAL DIFF FLAG NO
[2023-10-22 01:20] LABS: Basophils Percent Auto 0.4 % (0-2); Eosinophils Percent Auto 0.1 % (0-4); Hematocrit 42.9 % (42.0-52.0); Hemoglobin 14.9 g/dl (14.0-18.0); Imm Gran Abs Auto 0.01 X10*3/uL (0.00-0.03); Imm Gran Pct Auto 0.1 % (0.0-0.4); Lymphocytes Absolute Auto 1.8 X10*3/uL (1.2-4.9); Lymphocytes Percent Auto 25.4 % (20-40); Mean Corpuscular HGB Conc 34.7 g/dl (31.0-36.0); Mean Corpuscular Hemoglobin 29.6 pg (27.0-33.0); Mean Corpuscular Volume 85.3 fL (80.0-98.0); Mean Platelet Volume 10.2 fL (9.4-12.4); Monocytes Absolute Auto 0.8 X10*3/uL (0.1-1.2); Monocytes Percent Auto 11.8 % (2-11); Neutrophils Absolute Auto 4.3 x10*3/uL (2.0-8.3); Neutrophils Percent Auto 62.2 % (45-73); Platelet Count 186 X10*3/uL (160-400); Red Blood Count 5.03 X10*6/uL (4.60-5.80); Red Cell Distribution Width 13.3 % (11.0-16.0); White Blood Count 6.9 X10*3/uL (4.8-10.8)
[2023-10-22 01:32] LABS: Alanine Aminotransferase 19 U/L (0-40); Albumin Level 4.3 g/dL (3.5-5.0); Alkaline Phosphatase 77 U/L (39-117); Anion Gap 13 (12-20); Aspartate Amino Transferase 22 U/L (5-37); Bilirubin Total 0.5 mg/dL (0.0-1.0); Blood Urea Nitrogen 12 mg/dL (9-16); Calcium 9.3 mg/dL (8.4-10.2); Carbon Dioxide 24 mmol/L (22-29); Chloride 105 mmol/L (96-108); Estimated Glomerular Filt Rate > 60; Glucose Random 96 mg/dL (60-115); Potassium 3.6 mmol/L (3.3-5.1); Sodium 138 mmol/L (135-145); Total Protein 7.9 g/dL (6.5-8.0)
[2023-10-22 01:35] LABS: IDNOW Serial# 08D9AD1C; Strep A Nucleic Acid Negative (Negative)
[2023-10-22 01:56] LABS: Influenza A PCR NEGATIVE (Negative); Influenza B PCR NEGATIVE (Negative); Resp Syncy Virus RNA Qual PCR NEGATIVE (Negative); SARS COV2 PCR INHOUSE NEGATIVE (Negative)
[2023-10-22 02:57] VITALS: BP 116/71; PULSE 64; RESP 17; TEMP 36.9; O2SAT 99
--- NOTE | 2023-10-22 05:17 | ED_ITS ---
HPI - General Adult General Chief complaint: General Medical Stated complaint: Tonsillitis Time Seen by Provider: 10/22/23 05:04 Source: patient Mode of arrival: ambulatory Limitations: no limitations History of Present Illness ED Provider: Dr. Kathi Borrego HPI narrative: Patient comes to the emergency room complaining of 5 days of throat pain, coughing. Patient states that his girlfriend had the same symptoms. Patient reported earlier today that he has a bit of bloody tinged sputum production with the cough. Patient reports chills, no fever. Patient states that he sees white patches in his tonsils. Hurts to swallow, able to hold secretions well. Related Data Previous Rx's ?Medication ?Instructions ?Recorded ondansetron 4 mg disintegrating 4 mg PO Q6H PRN nausea and 06/07/22 tablet vomiting #15 tabs ibuprofen 600 mg tablet 600 mg PO TID PRN pain #20 tabs 07/04/22 amoxicillin 500 mg-potassium 1 tab PO BID #20 tabs 10/22/23 clavulanate 125 mg tablet (Augmentin) ibuprofen 600 mg tablet 600 mg PO TID PRN fever or pain 10/22/23 #20 tabs Allergies Allergy/AdvReac Type Severity Reaction Status Date / Time blueberry [BLUEBERRY] Allergy Unknown RASH Verified 10/22/23 01:07 blueberries Allergy Unknown Vomiting Uncoded 07/04/22 02:09 Review of Systems 2 Review of Systems: Constitutional : No Weight loss, No Fever, No Chills, No Night Sweats, No Fatigue, No Malaise ENT/Mouth : No Hearing loss, No Ear Pain, No Nasal Congestion, No Sinus Pain, No Hoarseness, complaining of sore throat with white patches, No Rhinorrhea, No Swallowing Difficulty Eyes: No Eye Pain, No Swelling, No Redness, No Foreign Body, No Discharge, No Vision Changes Cardiovascular : No Chest Pain, No SOB, No Dyspnea on Exertion, No Orthopnea, No Edema, No Palpitations Respiratory : Reports productive cough with bloody tinged No Wheezing, No Smoke Exposure, No Dyspnea Gastrointestinal : No Nausea, No Vomiting, No Diarrhea, No Constipation, No abdominal Pain, No Hematochezia, No Melena Genitourinary : no irregular bleeding, No Dysuria, No Urinary Frequency, No Hematuria, No Urinary Incontinence, No Urgency, No Flank Pain, No Urinary Flow Changes, No Hesitancy Musculoskeletal : No joint pain, No Myalgias, No Joint Swelling Skin : No Skin Lesions, No rash Neuro : No Weakness, No Numbness, No Paresthesias, No Loss of Consciousness, No Dizziness, No Headache Psych : No Anxiety/Panic, No Depression, No SI/HI/AH/VH, No Social Issues, Heme/Lymph: No Bruising, No Bleeding,No Lymphadenopathy Endocrine : No Polyuria, No Polydipsia, No Temperature Intolerance [facility] Past Medical History Medical History No known health problems Social History Social History Alcohol intake: never Smoked in Last 30 Days: No Use of substances other than those prescribed or required for medical reasons: No Substance Use Type: Marijuana Advance Directives: No Advance Directives Information Provided: Yes Do you have a plan to hurt others: No Plan Physical Exam ED Vital Signs: Vital Signs - 24 hr 10/22/23 01:06 10/22/23 02:57 10/22/23 05:36 Temperature 98.3 F 98.4 F 98.3 F Pulse Rate 69 64 73 Respiratory Rate 18 17 16 Blood Pressure 124/73 116/71 126/78 Pulse Oximetry 98 99 98 Oxygen Delivery Method Room Air Room Air Room Air BMI result Body Mass Index 25.8 Const Other: Appearance: Alert. Oriented X3. No acute distress. Well-appearing Eyes: Pupils equal, round and reactive to light. ENT: Erythematous oropharynx, white exudates on the tonsils bilaterally especially on the right, no obvious abscess. Neck: Normal inspection. Neck supple. No lymph nodes noted. No crepitus CVS: Normal heart rate and rhythm. Pulses normal. Normal S1 and S2 Respiratory: No respiratory distress. Breath sounds normal. No Wheezing. No rales Abdomen: Soft and nontender. No rigidity. No distention. Skin: Skin warm and dry. Normal skin color. Normal skin turgor. Extremities: No lower extremity edema. No Lacerations. No Rash Neuro: Oriented X 3. No motor deficit. No sensory deficit. Moving all extremities. No slurred speech. CN 2 through 12 grossly intact Psych: calm, cooperative, normal affect Course Course Course Narrative: -patient was giving in the ED Augmentin, p.o. dexamethasone and viscous lidocaine. Medications Administered Discontinued Medications Generic Name Dose Route Start Last Admin Trade Name Jose PRN Reason Stop Dose Admin Amoxicillin/Clavulanate Potassium 875 mg 10/22/23 05:16 10/22/23 05:44 Amoxicillin/Potassium Clav 875 Mg Tablet PO 10/22/23 05:17 875 mg ONCE ONE Administration Dexamethasone Sodium Phosphate 6 mg 10/22/23 05:16 10/22/23 05:44 Dexamethasone Sod Phosphate 4 Mg/Ml Vial IVPUSH 10/22/23 05:17 6 mg ONCE ONE Administration Ibuprofen 600 mg 10/22/23 05:21 10/22/23 05:44 Ibuprofen 600 Mg Tablet PO 10/22/23 05:22 600 mg ONCE ONE Administration Lidocaine HCl 15 ml 10/22/23 05:16 10/22/23 05:43 Lidocaine Hcl Viscous 2 % 15 Ml Solution MUCOUS MEM 10/22/23 05:17 15 ml ONCE ONE Administration Medical Decision Making Medical Decision Making [facility] Narrative: -my interpretation of labs: Normal hematology and chemistry, serology negative for influenza RSV and strep -chest x-ray: No obvious infiltrates. -given the patient's symptoms, patient was given the 1st dose of antibiotics. We will cover for strep given the appearance of his oropharynx history of bloody tinged sputum when he coughs. Differential Diagnosis Differential Diagnoses: The differential diagnosis associated with the presentation includes (Strep pharyngitis, viral pharyngitis, bronchitis) Lab Data [facility] Lab Attestation statement: I reviewed the patient's lab results. 10/22/23 01:06 10/22/23 01:06 Labs: Lab Results 10/22/23 Range/Units 01:06 WBC 6.9 (4.8-10.8) X10*3/uL RBC 5.03 (4.60-5.80) X10*6/uL Hgb 14.9 (14.0-18.0) g/dl Hct 42.9 (42.0-52.0) % MCV 85.3 (80.0-98.0) fL MCH 29.6 (27.0-33.0) pg MCHC 34.7 (31.0-36.0) g/dl RDW 13.3 (11.0-16.0) % Plt Count 186 (160-400) X10*3/uL MPV 10.2 (9.4-12.4) fL Immature Gran % (Auto) 0.1 (0.0-0.4) % Neut % (Auto) 62.2 (45-73) % Lymph % (Auto) 25.4 (20-40) % Oliver % (Auto) 11.8 H (2-11) % Eos % (Auto) 0.1 (0-4) % Baso % (Auto) 0.4 (0-2) % Lymph # (Auto) 1.8 (1.2-4.9) X10*3/uL Oliver # (Auto) 0.8 (0.1-1.2) X10*3/uL Eos # (Auto) 0.0 (0.0-0.4) X10*3/uL Baso # (Auto) 0.0 (0.0-0.2) X10*3/uL Abs Immat Gran (auto) 0.01 (0.00-0.03) X10*3/uL Absolute Neuts (auto) 4.3 (2.0-8.3) x10*3/uL Absolute Nucleated RBC 0.000 (0.0-0.012) X10*3/uL Nucleated RBC % (auto) 0.0 (0.0-0.2) /100WBC Sodium 138 (135-145) mmol/L Potassium 3.6 (3.3-5.1) mmol/L Chloride 105 (96-108) mmol/L Carbon Dioxide 24 (22-29) mmol/L Anion Gap 13 (12-20) BUN 12 (9-16) mg/dL Creatinine 0.98 (0.5-1.4) mg/dL Estim Creat Clear Calc 121.0 Estimated GFR > 60 Random Glucose 96 (60-115) mg/dL Calcium 9.3 (8.4-10.2) mg/dL Total Bilirubin 0.5 (0.0-1.0) mg/dL AST 22 (5-37) U/L ALT 19 (0-40) U/L Alkaline Phosphatase 77 (39-117) U/L Total Protein 7.9 (6.5-8.0) g/dL Albumin 4.3 (3.5-5.0) g/dL Influenza Type A (PCR) NEGATIVE (Negative) Influenza Type B (PCR) NEGATIVE (Negative) RSV RNA Qual (PCR) NEGATIVE (Negative) SARS-CoV-2 RNA (RT-PCR) NEGATIVE (Negative) S. pyogenes GrpA MARCELLE Negative (Negative) Discharge Plan Discharge Clinical Impression: Bronchitis, Pharyngitis Patient Disposition: Home, Self-Care Instructions: Pharyngitis (ED), Acute Bronchitis (ED) Additional Instructions: Please follow-up with your primary care physician tomorrow. If you have any worsening or new symptoms, please return to the emergency room or call 911 Prescriptions: New amoxicillin-pot clavulanate [Augmentin] 500-125 mg tablet 1 tab PO BID Qty: 20 0RF ibuprofen 600 mg tablet 600 mg PO TID PRN (Reason: fever or pain) Qty: 20 0RF No Action ondansetron 4 mg tablet,disintegrating 4 mg PO Q6H PRN (Reason: nausea and vomiting) Qty: 15 0RF ibuprofen 600 mg tablet 600 mg PO TID PRN (Reason: pain) Qty: 20 0RF Stand Alone Forms: Work/School Release Print Language: Portuguese
[2023-10-22 05:36] VITALS: BP 126/78; PULSE 73; RESP 16; TEMP 36.8; O2SAT 98
[2023-10-22] MEDS: Lidocaine HCl Viscous 2 % 15 ML SOLUTION MUCOUS MEM (05:43)
[2023-10-22] MEDS: dexAMETHasone sod phosphate 4 MG/ML VIAL 6 MG IVPUSH (05:44)
[2023-10-22] MEDS: Ibuprofen 600 MG TABLET PO (05:44)
[2023-10-22] MEDS: Amoxicillin/Potassium Clav 875 MG TABLET PO (05:44)
[2023-10-22 06:37] VITALS: BP 126/78; PULSE 73; RESP 16; TEMP 36.8; O2SAT 98
== END 2023-10-22 06:29 | disposition home or self-care (01) ==
PROVIDERS: Emergency Provider Emergency Medicine
DX: J40 Bronchitis, not specified as acute or chronic (principal); J02.9 Acute pharyngitis, unspecified; R05.9 Cough, unspecified; Z03.818 Encounter for observation for suspected exposure to other biological agents ruled out
CPT/HCPCS: 0241U; 36415; 71045; 80053; 85025; 87651; 99283; 99284; J1100

== ENCOUNTER 2023-12-02 09:06 | Emergency (ER) | payer SELFPAY ==
[2023-12-02 09:13] VITALS: BP 113/70; PULSE 75; RESP 19; TEMP 36.6; O2SAT 99; BMI 26.3
--- NOTE | 2023-12-02 09:23 | ED.GENADULT ---
HPI - General Adult General Chief complaint: General Medical Stated complaint: strep Time Seen by Provider: 12/02/23 09:15 Source: patient, RN notes reviewed and old records reviewed Mode of arrival: ambulatory Limitations: no limitations History of Present Illness ED Provider: FRANCIS ARMAS PA-C HPI narrative: 23 year old male with no significant pmhx presents to the ED today for evaluation of sore throat x5 days. Endorses associated odynophagia and chills without documented fever. denies decreased PO intake. Patient admits he was diagnosed with strep throat one month ago. At the time, patient felt better after completing one day of antibiotics and as a result, did not take the antibiotics to completion. No known sick contacts. Denies dysphagia, N/V, rash, abdominal pain. Related Data Previous Rx's ?Medication ?Instructions ?Recorded ondansetron 4 mg disintegrating 4 mg PO Q6H PRN nausea and 06/07/22 tablet vomiting #15 tabs ibuprofen 600 mg tablet 600 mg PO TID PRN pain #20 tabs 07/04/22 amoxicillin 500 mg-potassium 1 tab PO BID #20 tabs 10/22/23 clavulanate 125 mg tablet (Augmentin) ibuprofen 600 mg tablet 600 mg PO TID PRN fever or pain 10/22/23 #20 tabs benzocaine 15 mg-menthol 2.6 mg 1 jeaneth mucous membrane Q2-4H PRN 12/02/23 lozenges (Cepacol Sore Throat sore throat #16 ea (benzocaine-menthol)) penicillin V potassium 500 mg 500 mg PO BID 10 days #20 tabs 12/02/23 tablet prednisone 20 mg tablet 40 mg (2 x 20 mg) PO DAILY 4 days 12/02/23 #8 tabs Allergies Allergy/AdvReac Type Severity Reaction Status Date / Time blueberry [BLUEBERRY] Allergy Unknown RASH Verified 12/02/23 09:13 blueberries Allergy Unknown Vomiting Uncoded 12/02/23 09:13 Review of Systems Review of Systems: Constitutional: No fever, fatigue, night sweats, weight changes, +chills ENT/Mouth: No ear pain, hearing loss, nasal congestion, sinus pain, rhinorrhea, +sore throat, +odynophagia, No dysphagia Eyes: No eye pain, swelling, redness, vision changes, discharge Cardio: No chest pain, palpitations, NELSON, orthopnea, peripheral edema Pulm: No SOB, cough, sputum, wheezing, dyspnea, hemoptysis GI: No nausea, vomiting, hematemesis, abdominal pain, diarrhea, constipation, hematochezia, melena : No irregular bleeding, dysuria, frequency, urgency, hesitancy, hematuria, flank pain MSK: No back pain, neck pain, joint pain, myalgias Skin: No lesions, rashes Neuro: No weakness, numbness, paresthesias, LOC, dizziness, headache All other systems reviewed and are negative. [facility], [facility] Past Medical History Attestation statement: The following information was validated with the patient. Source: old records reviewed and nursing notes reviewed Medical History No known health problems Social History Social History Alcohol intake: never Substance Use Type: Marijuana Advance Directives: No Physical Exam ED Vital Signs: Vital Signs - 24 hr 12/02/23 09:13 Temperature 98 F Pulse Rate 75 Respiratory Rate 19 Blood Pressure 113/70 Pulse Oximetry 99 BMI result Body Mass Index 26.3 Vital signs stable, afebrile Const General: cooperative, healthy appearing, comfortable, no acute distress, alert and awake Orientation/consciousness: patient oriented x3 Limitations: no limitations HENMT Other: + posterior oropharynx erythematous and edematous, uvula is midline, no tonsilar exudates or peritonsillar masses, controlling secretions and speaking in complete sentences. Head: Yes normal to inspection, Yes normocephalic and Yes atraumatic Ears: hearing grossly normal bilaterally, external ears normal, TM's normal bilaterally, EAC's normal, mastoids normal and no periauricular adenopathy General nose exam: Normal external nose present and No nasal discharge present Face and sinus: Yes normal facial exam and Yes sinuses nontender Eyes General: appearance normal, both eyes and all related structures Pupils: Equal, round and reactive pupils present Neck Other: + no cervical, submandibular or submental LAD. Neck: Yes normal visual inspection and Yes full ROM Resp Effort & Inspection: normal respiratory effort and able to speak in complete sentences Auscultation: clear to auscultation bilaterally Cardio Rate: regular rate Rhythm: regular rhythm GI Other: No splenomegaly. Inspection: Yes normal to inspection Palpation (GI): Soft to palpation and nontender Skin General skin exam: no rashes or lesions noted Neuro General: patient oriented x3, gait normal and moves all extremities Cranial nerves: Yes Equal, round and reactive pupils present Extrem General: Yes normal to inspection Course Course Course Narrative: 1015-- Patient has tested negative for covid/flu/rsv along with strep. As physical exam findings are consistent with strep, will treat. Patient is agreeable to this. Patient recieved toradol and solumedrol in ED with improvement. penicillin sent to pharmacy along with prednisone and cepacol throat lozenges. tolerating water in ED. Patient has remained stable throughout ED visit today. Discussed worrisome signs and symptoms and when to return to the ED. All questions answered at this time. Patient is agreeable with disposition and stable for discharge. Medications Administered Discontinued Medications Generic Name Dose Route Start Last Admin Trade Name Freq PRN Reason Stop Dose Admin Ketorolac Tromethamine 30 mg 12/02/23 09:27 12/02/23 09:36 Ketorolac Tromethamine 30 Mg/Ml Vial IM 12/02/23 09:28 30 mg ONCE ONE Administration Methylprednisolone Sodium Succinate 60 mg 12/02/23 09:26 12/02/23 09:36 Methylprednisolone Sod Succ 125 Mg/2 Ml Vial IM 12/02/23 09:27 60 mg ONCE ONE Administration Medical Decision Making Medical Decision Making [facility] Narrative: 23 year old male with no significant pmhx presents to the ED today for evaluation of sore throat x5 days. VSS. Afebrile. Nontoxic appearing and in NAD. On exam, posterior oropharynx erythematous and edematous, uvula is midline, no tonsilar exudates or peritonsillar masses, controlling secretions and speaking in complete sentences. No LAD. No anterior neck swelling. Bilateral EACs and TMs intact. Skin w/d/i. no rashes. moist mucous membranes. no splenomegaly. Differential diagnosis includes strep throat, viral syndrome. Unlikely mono, lugwigs angina, [employer], retropharyngeal abscess, dental abscess, epiglottis, acute respiratory distress, pneumonia. Plan for viral/ strep swabs, steroid, pain control, and re-evaluation. Differential Diagnosis Differential Diagnoses: The differential diagnosis associated with the presentation includes as above. Admission/Observation Not indicated Lab Data [facility] Lab Attestation statement: I reviewed the patient's lab results. as above Labs: Lab Results 12/02/23 Range/Units 09:22 Influenza Type A (PCR) NEGATIVE (Negative) Influenza Type B (PCR) NEGATIVE (Negative) RSV RNA Qual (PCR) NEGATIVE (Negative) SARS-CoV-2 RNA (RT-PCR) NEGATIVE (Negative) S. pyogenes GrpA MARCELLE Negative (Negative) External Record Review External record reviewed: Inpatient record Tests considered The following testing was considered but not selected: I considered obtaining CT soft tissue neck however no concern for deeper soft tissue infection, not warranted at this time. Labs considered, no concern for systemic infection. Prescription Management I considered prescription management with: Pain Medication (cepacol lozenges), Antibiotic (penicillin) and Other (prednisone) Critical Care Time Critical Care Time Critical Care Time: No Discharge Plan Discharge Clinical Impression: Acute streptococcal pharyngitis Patient Disposition: Home, Self-Care Instructions: Pharyngitis (ED), Strep Throat (ED) Additional Instructions: You were seen in the ED today for evaluation of sore throat. You tested negative for covid/flu/rsv and strep throat however your exam findings are consistent with strep. Penicillin is an antibiotic that has been sent to your pharmacy. Take this twice daily for the next 10 days to treat strep throat. Do not stop taking these antibiotics early or miss any doses as this may cause infection to return or worsen. Prednisone is a steroid that has been sent to your pharmacy to help with tonsillar swelling. You were given a dose of this in ED so please take the next dose tomorrow. Cepacol throat lozenges have been sent to your pharmacy to help with throat pain. You may also purchase [id number] chloraseptic spray to numb your throat. Take Tylenol and ibuprofen as needed for body aches or fevers. Make sure to change your toothbrush as this contains bacteria. Strep throat is contagious. If anyone else in your household is exhibiting symptoms, please advise them to come to the ED, urgent care, or to see their primary care provider. Follow up with your primary care provider as needed. Return to the emergency department if your symptoms persist or worsen despite treatment or if you have difficulty swallowing, opening your mouth, or develop a rash. In the case of emergency, call 911.? Prescriptions: New Cepacol Sore Throat (fortino-men) 15-2.6 mg lozenge 1 jeaneth mucous membrane Q2-4H PRN (Reason: sore throat) Qty: 16 0RF penicillin V potassium 500 mg tablet 500 mg PO BID 10 Days Qty: 20 0RF prednisone 20 mg tablet 40 mg PO DAILY 4 Days Qty: 8 0RF No Action ondansetron 4 mg tablet,disintegrating 4 mg PO Q6H PRN (Reason: nausea and vomiting) Qty: 15 0RF ibuprofen 600 mg tablet 600 mg PO TID PRN (Reason: pain) Qty: 20 0RF amoxicillin-pot clavulanate [Augmentin] 500-125 mg tablet 1 tab PO BID Qty: 20 0RF ibuprofen 600 mg tablet 600 mg PO TID PRN (Reason: fever or pain) Qty: 20 0RF Referrals: [facility] [place] [facility] [Provider Group] [facility] [place] Primary Care,Vickie [Provider Group] Stand Alone Forms: Work/School Release Print Language: Tajik
[2023-12-02] MEDS: Ketorolac Tromethamine 30 MG/ML VIAL IM (09:36)
[2023-12-02] MEDS: methylPREDNISolone Sod Succ 125 MG/2 ML VIAL 60 MG IM (09:36)
[2023-12-02 09:37] LABS: IDNOW Serial# 08D9AD1C; Strep A Nucleic Acid Negative (Negative)
[2023-12-02 10:05] LABS: Influenza A PCR NEGATIVE (Negative); Influenza B PCR NEGATIVE (Negative); Resp Syncy Virus RNA Qual PCR NEGATIVE (Negative); SARS COV2 PCR INHOUSE NEGATIVE (Negative)
[2023-12-02 10:18] VITALS: BP 113/70; PULSE 75; RESP 19; TEMP 36.6; O2SAT 99
== END 2023-12-02 10:19 | disposition home or self-care (01) ==
PROVIDERS: Emergency Provider Student in an Organized Health Care Education/Training Program
DX: J02.0 Streptococcal pharyngitis (principal); Z03.818 Encounter for observation for suspected exposure to other biological agents ruled out
CPT/HCPCS: 0241U; 87651; 96372; 99283; 99284; J1885; J2919